=== PATIENT | male | born 1960 | race American Indian/Alaskan Native ===

== ENCOUNTER 2017-03-04 12:49 | Inpatient (IN) | payer MEDICAID ==
[2017-03-04 16:15] LABS: Basophils % (Auto) 0.3 % (0.0-1.8); Eosinophils % (Auto) 0.9 % (0.0-4.3); Hemoglobin 12.8 gm/dl (11.8-15.2); Mean Corpuscular HGB Conc 32 % (32-34); Mean Corpuscular Hemoglobin 30 pg (28-32); Mean Corpuscular Volume 94 fl (84-94); Platelet Count 160 K/mm3 (140-440); Red Blood Count 4.26 M/mm3 (3.65-5.03); Red Cell Distribution Width 14.3 % (13.2-15.2); White Blood Count 7.8 K/mm3 (4.5-11.0)
[2017-03-04 16:27] LABS: Anion Gap 19 mmol/L; BUN/Creatinine Ratio 21; Blood Urea Nitrogen 15 mg/dL (9-20); Calcium 8.7 mg/dL (8.4-10.2); Carbon Dioxide 25 mmol/L (22-30); Chloride 100.8 mmol/L (98-107); Glucose 151 mg/dL (75-100); Potassium 4.2 mmol/L (3.6-5.0); Sodium 141 mmol/L (137-145)
--- NOTE | 2017-03-04 16:50 | Emergency Department Report ---
ED Chest Pain HPI - General Chief Complaint: Chest Pain Stated Complaint: CHEST PAIN Time Seen by Provider: 03/04/17 16:39 Source: patient, EMS Mode of arrival: Ambulatory Limitations: No Limitations - History of Present Illness Initial Comments: 57-year-old male with a past history diabetes, cad with cabg 3 and 2014, hypertension, and hyperlipidemia presents to hospital complaints of chest pain that woke him up from sleep since 7 am. patient complains of a moderate amount made a left-sided sharp chest pain and also feeling like his chest was caving in and tight. positive social or shortness of breath and dizziness. denies nausea, vomiting, or diaphoresis. patient took a total of 6 aspirin 81 mg and 3 nitroglycerin without relief. last cath with approximately 2 years ago with cabg placement. 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 patient's been compliant with this medication. states unremarkable stress test one year ago. Denies stent placement. Severity scale (0 -10): 3 - Related Data Allergies Allergy/AdvReac Type Severity Reaction Status Date / Time Unable to Assess Allergy Unverified 03/04/17 16:03 Heart Score - HEART Score History: Moderately suspicious EKG: Non-specific Age: 45-65 Risk factors: > 3 risk factors or hx of atherosclerotic disease Troponin: < normal limit HEART Score: 5 ED Review of Systems ROS: Stated complaint: CHEST PAIN Other details as noted in HPI Comment: All other systems reviewed and negative Other: Constitutional: No fevers chills Eyes: No eye pain visual changes ENT: No ear pain or throat pain Neck: Denies pain Respiratory: Denies cough wheezing Cardiovascular: Denies palpitations, syncope GI: Denies abdominal pain, nausea, vomiting, diarrhea : Denies dysuria Musculoskeletal: Denies back pain Skin: Denies rash, lesions, erythema Neurologic: Denies headache, numbness, weakness Psychiatric: Denies suicidal ideation, hallucinations ED Past Medical Hx - Past Medical History Previous Medical History?: Yes Hx Hypertension: Yes Hx Heart Attack/AMI: Yes Hx Diabetes: Yes - Surgical History Past Surgical History?: Yes Hx Open Heart Surgery: Yes - Social History Smoking Status: Never Smoker Substance Use Type: Alcohol ED Physical Exam - General Limitations: No Limitations - Other Other exam information: General: No limitations, patient is alert in no acute distress Head exam: Atraumatic, normocephalic Eyes exam: Normal appearance, pupils equal reactive to light, extraocular movements intact ENT: Moist mucous membrane, normal oropharynx Neck exam: Normal inspection, full range of motion, no meningismus nontender Respiratory exam: Clear to auscultation bilateral, no wheezes, rales, crackles Cardiovascular: Normal rate and rhythm, normal heart sounds, left-sided parasternal chest wall tenderness Abdomen: Soft, nondistended, and nontender, with normal bowel sounds, no rebound, or guarding Extremity: Full range of motion normal inspection no deformity, no calf tenderness or edema Back: Normal Inspection, full range of motion, no tenderness Neurologic: Alert, oriented x3, cranial nerves intact, no motor or sensory deficit Psychiatric: normal affect, normal mood Skin: Warm, dry, intact ED Course Vital Signs 03/04/17 03/04/17 03/04/17 15:45 16:26 16:31 Temperature 98.6 F Pulse Rate 77 71 Respiratory 16 17 18 Rate Blood Pressure 145/82 O2 Sat by Pulse 98 100 86 Oximetry LIZBETH score - Lizbeth Score Age > 65: (0) No Aspirin use within the Past 7 Days: (1) Yes 3 or more CAD Risk Factors: (1) Yes 2 or more Angina events in past 24 hrs: (1) Yes Known CAD with more than 50% Stenosis: (1) Yes Elevated Cardiac Markers: (0) No ST Deviation Greater than 0.5mm: (0) No LIZBETH Score: 4 ED Medical Decision Making - Lab Data Result diagrams: 03/04/17 16:08 03/04/17 16:08 Lab Results 03/04/17 03/04/17 Range/Units 16:08 16:08 WBC 7.8 (4.5-11.0) K/mm3 RBC 4.26 (3.65-5.03) M/mm3 Hgb 12.8 (11.8-15.2) gm/dl Hct 40.0 (35.5-45.6) % MCV 94 (84-94) fl MCH 30 (28-32) pg MCHC 32 (32-34) % RDW 14.3 (13.2-15.2) % Plt Count 160 (140-440) K/mm3 Lymph % (Auto) 34.0 (13.4-35.0) % [place] % (Auto) 6.9 (0.0-7.3) % Eos % (Auto) 0.9 (0.0-4.3) % Baso % (Auto) 0.3 (0.0-1.8) % Lymph # 2.6 (1.2-5.4) K/mm3 [place] # 0.5 (0.0-0.8) K/mm3 Eos # 0.1 (0.0-0.4) K/mm3 Baso # 0.0 (0.0-0.1) K/mm3 Seg Neutrophils % 57.9 (40.0-70.0) % Seg Neutrophils # 4.5 (1.8-7.7) K/mm3 Sodium 141 (137-145) mmol/L Potassium 4.2 (3.6-5.0) mmol/L Chloride 100.8 (98-107) mmol/L Carbon Dioxide 25 (22-30) mmol/L Anion Gap 19 mmol/L BUN 15 (9-20) mg/dL Creatinine 0.7 L (0.8-1.5) mg/dL Estimated GFR > 60 ml/min BUN/Creatinine Ratio 21 % Glucose 151 H (75-100) mg/dL Calcium 8.7 (8.4-10.2) mg/dL Troponin T < 0.010 (0.00-0.029) ng/mL - EKG Data -: EKG Interpreted by Me EKG shows normal: sinus rhythm, axis (7), QRS complexes (92), ST-T waves (no stemi/t inv) - EKG Data When compared to previous EKG there are: previous EKG unavailable 03/04/17 17:08 repeat ekg without signficant injury - Radiology Data Radiology results: image reviewed (portable cxr: naf) - Medical Decision Making Plans admit patient to the hospital for further workup of chest pain. Significant cardiac risk factors. Initial troponin negative. - Differential Diagnosis costochondritis, MN, unstable angina, PE, atypical chest pain Critical Care Time: No Critical care attestation.: If time is entered above; I have spent that time in minutes in the direct care of this critically ill patient, excluding procedure time. ED Disposition Clinical Impression: Chest pain, History of coronary artery bypass graft x 3, Hypertension, Diabetes , Hyperlipidemia Disposition: OP ADMIT IP TO THIS HOSP Is pt being admited?: Yes Does the pt Need Aspirin: Yes Condition: Stable Time of Disposition: 16:55 (Dr Darden/hospitalist)
--- NOTE | 2017-03-04 17:48 | XRay Report ---
FINAL REPORT PROCEDURE: XR CHEST 1V AP TECHNIQUE: Chest radiograph anteroposterior view. CPT 44324 HISTORY: cp COMPARISON: No prior studies are available for comparison. FINDINGS: Lungs are clear. No infiltrates masses or effusions are identified. There appear to be postprocedural or postsurgical changes overlying the mediastinum. Surgical clips and small metallic ring is visualized. The heart does not appear to be enlarged. The pulmonary vasculature is not distended. No evidence of pulmonary edema or pleural effusion. No acute bony abnormalities are identified. IMPRESSION: Postprocedure or postsurgical changes suspected in the mediastinum. No acute abnormality is identified..
[2017-03-04] MEDS ORDERED: PROAIR IH PRN (20:23)
[2017-03-04] MEDS ORDERED: NITROSTAT SL PRN (20:23)
--- NOTE | 2017-03-04 20:23 | Event Note ---
Date: 03/04/17 History of Present Illness Date of examination: 03/04/17 Chief complaint: Chest pain History of present illness: 57-year-old -[place] male with past medical history significant for CAD status post CABG, hypertension, diabetes presented to the emergency department complaining of left-sided chest pain. The pain started this morning, 10 out of 10 in intensity, with radiation to the left arm, associated with dizziness, diaphoresis and shortness of breath. No alleviating or aggravating factors. Patient took 3 doses of nitroglycerin without improvement. Patient said he was compliant with his cardiac medications. Patient has been followed at [facility]. Currently the patient is chest pain-free. REVIEW OF SYSTEMS: GENERAL: no weight change, no fatigue, no fever HEAD: no head ache EYES: no blurry vision, no acute visual loss EARS: no hearing loss, no discharge, no earache NOSE: no stuffiness, no sneezing, no discharge MOUTH, THROAT AND NECK: no bleeding gums, no sore throat, no swollen neck CARDIAC: As stated in the HPI RESPIRATORY: + shortness of breath, no wheeze, no cough, no sputum, no hemoptysis, no asthma GI: no decreased appetite, no nausea, no vomiting, no dysphagia, no diarrhea, no constipation, no abdominal pain URINARY: no change in frequency, no urgency, no polyuria, no hematuria, no incontinence MUSCULOSKELETAL: no muscle weakness, no pain, no joint stiffness NEUROLOGIC: no loss of sensation/numbness, no tingling, no tremors, no weakness/ paralysis HEMATOLOGIC: no anemia, no easy bruising SKIN: no rashes ENDOCRINE: no heat/cold intolerance, no polyuria, no polydipsia, no thyroid problems, +diabetes PSYCHIATRIC: no anxiety, no depression, no suicidal ideations Past History Past Medical History: CAD, diabetes, hypertension Past Surgical History: CABG Social history: full code. denies: smoking, alcohol abuse, prescription drug abuse, IV drug use Family history: no significant family history Medications and Allergies Allergies Allergy/AdvReac Type Severity Reaction Status Date / Time ibuprofen AdvReac Itching Verified 03/04/17 13:04 Active Meds: Active Medications Heparin Sodium (Porcine) (Heparin) 5,000 unit SUB-Q Q8HR MARYURI Exam - Physical Exam Narrative exam: Not in cardiopulmonary distress. The patient obese. Vital signs as documented. Head exam is unremarkable. No scleral icterus . Neck is without jugular venous distension, thyromegaly, or carotid bruits. Lungs are clear to auscultation. Cardiac exam reveals regular rate and Rhythm. First and second heart sounds normal. No murmurs, rubs or gallops. Abdominal exam reveals normal bowel sounds, no masses, no organomegaly and no aortic enlargement. Extremities are nonedematous and both femoral and pedal pulses are normal. 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 No focal weakness. - Constitutional Vitals: Temp Pulse Resp BP Pulse Ox 98.6 F 77 16 145/82 98 03/04/17 13:01 03/04/17 13:01 03/04/17 13:01 03/04/17 13:01 03/04/17 13:01 Results - Imaging and Cardiology EKG: image reviewed Assessment and Plan Assessment and plan: Chest pain CAD status post CABG Diabetes mellitus with hyperglycemia - Serial cardiac enzymes and EKG - Cardiology consult - Resume his home medications - Pain control DVT prophylaxis - Heparin Disposition - Admit to telemetry Advance Directives: Yes VTE prophylaxis?: Chemical Plan of care discussed with patient/family: Yes
--- NOTE | 2017-03-04 20:23 | History and Physical Report ---
History of Present Illness Date of examination: 03/04/17 History of present illness: Please Check the HPI in the event note. Medications and Allergies Allergies Allergy/AdvReac Type Severity Reaction Status Date / Time Unable to Assess Allergy Unverified 03/04/17 16:03 Home Medications Medication Instructions Recorded Confirmed Last Taken Type Albuterol Sulfate [Proventil Hfa] 2 inhalation IH Q6H PRN 03/04/17 03/04/17 Unknown History Aspirin [Aspirin BABY CHEW TAB] 81 mg PO QDAY 03/04/17 03/04/17 Unknown History Atorvastatin [Lipitor Tab] 80 mg PO QHS 03/04/17 03/04/17 Unknown History Ferrous Gluconate [Iron] 27 mg PO DAILY 03/04/17 03/04/17 Unknown History Gemfibrozil [Lopid] 600 mg PO BID 03/04/17 03/04/17 Unknown History Isosorbide Dinitrate [Isordil 20 mg PO TID 03/04/17 03/04/17 Unknown History Titradose] Losartan [Cozaar] 25 mg PO QDAY 03/04/17 03/04/17 Unknown History Metformin HCl [Glucophage] 1,000 mg PO BID 03/04/17 03/04/17 Unknown History Metoprolol Xl [Metoprolol 100 mg PO QDAY 03/04/17 03/04/17 Unknown History SUCCINATE ER TAB] Nitroglycerin [Nitrostat] 0.4 mg SL Q5M PRN 03/04/17 03/04/17 Unknown History Omeprazole 40 mg PO DAILY 03/04/17 03/04/17 Unknown History Pentoxifylline [TRENtal] 400 mg PO TID 03/04/17 03/04/17 Unknown History traMADol [Ultram] 50 mg PO Q6HR PRN 03/04/17 03/04/17 Unknown History Exam - Constitutional Vitals: Temp Pulse Resp BP Pulse Ox 98.6 F 71 18 145/82 86 03/04/17 15:45 03/04/17 16:26 03/04/17 16:31 03/04/17 15:45 03/04/17 16:31 Results - Labs CBC & Chem 7: 03/04/17 16:08 03/04/17 16:08 Labs: Laboratory Last Values WBC 7.8 K/mm3 (4.5-11.0) 03/04/17 16:08 RBC 4.26 M/mm3 (3.65-5.03) 03/04/17 16:08 Hgb 12.8 gm/dl (11.8-15.2) 03/04/17 16:08 Hct 40.0 % (35.5-45.6) 03/04/17 16:08 MCV 94 fl (84-94) 03/04/17 16:08 MCH 30 pg (28-32) 03/04/17 16:08 MCHC 32 % (32-34) 03/04/17 16:08 RDW 14.3 % (13.2-15.2) 03/04/17 16:08 Plt Count 160 K/mm3 (140-440) 03/04/17 16:08 Lymph % (Auto) 34.0 % (13.4-35.0) 03/04/17 16:08 [place] % (Auto) 6.9 % (0.0-7.3) 03/04/17 16:08 Eos % (Auto) 0.9 % (0.0-4.3) 03/04/17 16:08 Baso % (Auto) 0.3 % (0.0-1.8) 03/04/17 16:08 Lymph # 2.6 K/mm3 (1.2-5.4) 03/04/17 16:08 [place] # 0.5 K/mm3 (0.0-0.8) 03/04/17 16:08 Eos # 0.1 K/mm3 (0.0-0.4) 03/04/17 16:08 Baso # 0.0 K/mm3 (0.0-0.1) 03/04/17 16:08 Seg Neutrophils % 57.9 % (40.0-70.0) 03/04/17 16:08 Seg Neutrophils # 4.5 K/mm3 (1.8-7.7) 03/04/17 16:08 Sodium 141 mmol/L (137-145) 03/04/17 16:08 Potassium 4.2 mmol/L (3.6-5.0) 03/04/17 16:08 Chloride 100.8 mmol/L (98-107) 03/04/17 16:08 Carbon Dioxide 25 mmol/L (22-30) 03/04/17 16:08 Anion Gap 19 mmol/L 03/04/17 16:08 BUN 15 mg/dL (9-20) 03/04/17 16:08 Creatinine 0.7 mg/dL (0.8-1.5) L 03/04/17 16:08 Estimated GFR > 60 ml/min 03/04/17 16:08 BUN/Creatinine Ratio 21 % 03/04/17 16:08 Glucose 151 mg/dL (75-100) H 03/04/17 16:08 Calcium 8.7 mg/dL (8.4-10.2) 03/04/17 16:08 Troponin T < 0.010 ng/mL (0.00-0.029) 03/04/17 18:47
[2017-03-04] MEDS ORDERED: MORPHINE IV PRN (20:28)
[2017-03-04] MEDS ORDERED: D50W (25GM) Syringe IV PRN (20:34)
[2017-03-04] MEDS ORDERED: PROVENTIL IH PRN (20:51)
[2017-03-04] MEDS: HEPARIN SUB-Q SCH (21:04)
[2017-03-04] MEDS ORDERED: NON-FORMULARY (Atorvastatin [Lipitor] 80 MG) PO SCH (22:00)
[2017-03-04] MEDS: NOVOLOG SUB-Q SCH (22:32)
[2017-03-04] MEDS: LOPID PO SCH (22:43)
[2017-03-05 03:02] LABS: Basophils % (Auto) 0.5 % (0.0-1.8); Eosinophils % (Auto) 2.7 % (0.0-4.3); Hematocrit 36.6 % (35.5-45.6); Hemoglobin 12.4 gm/dl (11.8-15.2); Mean Corpuscular HGB Conc 34 % (32-34); Mean Corpuscular Hemoglobin 31 pg (28-32); Mean Corpuscular Volume 92 fl (84-94); Platelet Count 133 K/mm3 (140-440); Red Cell Distribution Width 13.7 % (13.2-15.2); White Blood Count 6.8 K/mm3 (4.5-11.0)
[2017-03-05 03:19] LABS: Anion Gap 16 mmol/L; BUN/Creatinine Ratio 20; Blood Urea Nitrogen 14 mg/dL (9-20); Calcium 8.5 mg/dL (8.4-10.2); Carbon Dioxide 26 mmol/L (22-30); Chloride 101.3 mmol/L (98-107); Glucose 90 mg/dL (75-100); Potassium 3.5 mmol/L (3.6-5.0); Sodium 140 mmol/L (137-145)
[2017-03-05] MEDS ORDERED: ISORDIL TITRADOSE PO SCH (08:00)
[2017-03-05] MEDS: NOVOLOG SUB-Q SCH ×4 (08:25→22:36)
[2017-03-05] MEDS ORDERED: NON-FORMULARY (Omeprazole [Omeprazole] 40 MG) PO SCH (10:00)
--- NOTE | 2017-03-05 10:58 | Consultation ---
History of Present Illness Consult date: 03/05/17 Requesting physician: OSWALDO PENA Consult reason: chest pain History of present illness: He woke up yesterday morning from sleep with a sharp precordial chest pain. He took one sublingual nitroglycerin without relief and subsequently activated EMS. The pain was associated with shortness of breath but no radiation. So far , his cardiac enzymes are negative for acute myocardial infarction. Past History Past Medical History: CAD, diabetes, hypertension, hyperlipidemia Past Surgical History: CABG, Other (removal of sternal wires in 2016) Social history: denies: smoking, alcohol abuse Family history: denies: CAD Medications and Allergies Allergies Allergy/AdvReac Type Severity Reaction Status Date / Time atorvastatin [From Lipitor] Allergy Itching Verified 03/05/17 02:56 ibuprofen Allergy Itching Verified 03/05/17 02:56 Home Medications Medication Instructions Recorded Confirmed Last Taken Type Albuterol Sulfate [Proventil Hfa] 2 inhalation IH Q6H PRN 03/04/17 03/04/17 Unknown History Aspirin [Aspirin BABY CHEW TAB] 81 mg PO QDAY 03/04/17 03/04/17 Unknown History Atorvastatin [Lipitor Tab] 80 mg PO QHS 03/04/17 03/04/17 Unknown History Ferrous Gluconate [Iron] 27 mg PO DAILY 03/04/17 03/04/17 Unknown History Gemfibrozil [Lopid] 600 mg PO BID 03/04/17 03/04/17 Unknown History Isosorbide Dinitrate [Isordil 20 mg PO TID 03/04/17 03/04/17 Unknown History Titradose] Losartan [Cozaar] 25 mg PO QDAY 03/04/17 03/04/17 Unknown History Metformin HCl [Glucophage] 1,000 mg PO BID 03/04/17 03/04/17 Unknown History Metoprolol Xl [Metoprolol 100 mg PO QDAY 03/04/17 03/04/17 Unknown History SUCCINATE ER TAB] Nitroglycerin [Nitrostat] 0.4 mg SL Q5M PRN 03/04/17 03/04/17 Unknown History Omeprazole 40 mg PO DAILY 03/04/17 03/04/17 Unknown History Pentoxifylline [TRENtal] 400 mg PO TID 03/04/17 03/04/17 Unknown History traMADol [Ultram] 50 mg PO Q6HR PRN 03/04/17 03/04/17 Unknown History Active Meds: Active Medications Albuterol (Proventil) 2.5 mg IH Q6HRT PRN PRN Reason: Shortness Of Breath Aspirin (Baby Aspirin) 81 mg PO QDAY [facility] Atorvastatin Calcium (Lipitor) 80 mg PO QHS [facility] Last Admin: 03/04/17 22:44 Dose: 80 mg Dextrose (D50w (25gm) Syringe) 50 ml IV PRN PRN PRN Reason: Hypoglycemia Ferrous Gluconate (Fergon) 324 mg PO QDAY [facility] Gemfibrozil (Lopid) 600 mg PO BID [facility] Last Admin: 03/04/17 22:43 Dose: 600 mg Heparin Sodium (Porcine) (Heparin) 5,000 unit SUB-Q Q8H [facility] Last Admin: 03/04/17 21:04 Dose: 5,000 unit Influenza Virus Vaccine Quadrival (Fluarix Quad [id number](36 Mos+) 0.5 ml IM .ONCE ONE Stop: 03/05/17 12:01 Insulin Aspart (Novolog) 0 units SUB-Q ACHS [facility] PRN Reason: Protocol Last Admin: 03/04/17 22:32 Dose: 2 units Isosorbide Dinitrate (Isordil Titradose) 40 mg PO TID [facility] Losartan Potassium (Cozaar) 25 mg PO QDAY [facility] Metoprolol Succinate (Toprol Xl) 100 mg PO QDAY [facility] Morphine Sulfate (Morphine) 2 mg IV Q4H PRN PRN Reason: Pain, Moderate (4-6) Nitroglycerin (Nitrostat) 0.4 mg SL Q5M PRN PRN Reason: Chest Pain Pantoprazole Sodium (Protonix) 40 mg PO DAILY [facility] Pentoxifylline (Trental) 400 mg PO TID [facility] Review of Systems Constitutional: no fever, no chills Ears, nose, mouth and throat: no ear pain, no ear discharge Cardiovascular: chest pain, lightheadedness, shortness of breath, no palpitations Respiratory: shortness of breath, no cough, no hemoptysis Gastrointestinal: no abdominal pain, no nausea, no vomiting, no diarrhea, no constipation Genitourinary Male: no dysuria, no hematuria, no urinary frequency Rectal: no pain, no bleeding Musculoskeletal: no neck stiffness, no neck pain, no myalgias Integumentary: no rash, no pruritis Neurological: no paralysis, no weakness, no parathesias, no headaches Endocrine: no cold intolerance, no heat intolerance Hematologic/Lymphatic: no easy bruising, no easy bleeding Allergic/Immunologic: no urticaria, no wheezing Physical Examination Vital Signs Last Vital Signs Temp 97.9 F 03/05/17 09:06 Pulse 63 03/05/17 09:06 Resp 18 03/05/17 09:06 BP 131/79 03/05/17 09:06 Pulse Ox 96 03/05/17 09:06 General appearance: no acute distress HEENT: Positive: EOMI, Normocephaly, Mucus Membranes Moist Neck: Positive: neck supple, trachea midline Cardiac: Positive: Reg Rate and Rhythm, S1/S2 Lungs: Positive: clear to auscultation Neuro: Positive: Grossly Intact Abdomen: Positive: Soft, Active Bowel Sounds. Negative: Tender Skin: Positive: Clear. Negative: Rash Musculoskeletal: Normal Range of Motion Extremities: Present: normal. Absent: edema Results 03/05/17 02:49 03/05/17 02:49 CBC 03/04/17 03/05/17 Range/Units 16:08 02:49 WBC 7.8 6.8 (4.5-11.0) K/mm3 RBC 4.26 4.00 (3.65-5.03) M/mm3 Hgb 12.8 12.4 (11.8-15.2) gm/dl Hct 40.0 36.6 (35.5-45.6) % Plt Count 160 133 L (140-440) K/mm3 Lymph # 2.6 3.0 (1.2-5.4) K/mm3 [place] # 0.5 0.6 (0.0-0.8) K/mm3 Eos # 0.1 0.2 (0.0-0.4) K/mm3 Baso # 0.0 0.0 (0.0-0.1) K/mm3 Comprehensive Metabolic Panel 03/04/17 03/05/17 Range/Units 16:08 02:49 Sodium 141 140 (137-145) mmol/L Potassium 4.2 3.5 L (3.6-5.0) mmol/L Chloride 100.8 101.3 (98-107) mmol/L Carbon Dioxide 25 26 (22-30) mmol/L BUN 15 14 (9-20) mg/dL Creatinine 0.7 L 0.7 L (0.8-1.5) mg/dL Glucose 151 H 90 (75-100) mg/dL Calcium 8.7 8.5 (8.4-10.2) mg/dL - Imaging and Cardiology EKG: image reviewed EKG interpretations - Telemetry EKG Rhythm: Sinus Rhythm - EKG Sinus rhythms and dysrhythmias: sinus rhythm Assessment and Plan Increase the dose of oral nitrates. Schedule Lexiscan stress test with nuclear imaging in a.m. - Patient Problems (1) Chest pain Current Visit: Yes Status: Acute (2) CAD (coronary artery disease) Current Visit: Yes Status: Chronic Qualifiers: Coronary Disease-Associated Artery/Lesion type: [place] artery (3) Hx of CABG Current Visit: Yes Status: Chronic (4) Hypertension Current Visit: Yes Status: Chronic Qualifiers: Hypertension type: essential hypertension Qualified Code(s): I10 - Essential (primary) hypertension (5) Diabetes Current Visit: Yes Status: Chronic Qualifiers: Diabetes mellitus type: type 2
[2017-03-05] MEDS ORDERED: Fluarix Quad 2017-2018(36 MOS+ IM ONE (12:00)
[2017-03-05] MEDS: HEPARIN SUB-Q SCH ×3 (12:30→22:30)
[2017-03-05] MEDS: TOPROL XL PO SCH (12:50)
[2017-03-05] MEDS: TRENTAL PO SCH ×3 (12:51→22:32)
[2017-03-05] MEDS: PROTONIX PO SCH (12:51)
[2017-03-05] MEDS: BABY ASPIRIN PO SCH (12:51)
[2017-03-05] MEDS: COZAAR PO SCH (12:52)
[2017-03-05] MEDS: FERGON PO SCH (13:48)
[2017-03-05] MEDS: LOPID PO SCH ×2 (13:53→22:31)
--- NOTE | 2017-03-05 14:04 | Progress Note ---
Assessment and Plan Assessment and plan: 57 yo obese AAM with CAD s/p CABG, HTN, DM admitted for chest pain not relieved by nitroglycerin 1. Chest pain Known CAD s/p CABG On BB, ACEI, statin, aspirin EKG with no acute ischemic changes and CE negative Evaluated by Cardiology; nitrate dose increased and scheduled for stress test in am 2. HTN BP controlled on current regimen - metoprolol, losartan, isosorbide nitrate 3. Mixed hyperlipidemia On high-dose Lipitor along with gemfibrozil 4. Diabetes At home on Metformin, but hemoglobin A1c 5.9 Monitor BS, SSI as needed 5. Obesity Counseled regarding importance of losing weight the left sternal changes 6. DVT prophylaxis Heparin subcutaneous History Interval history: no chest pain this morning scheduled for MPI in am Hospitalist Physical - Constitutional Vitals: Temp Pulse Resp BP Pulse Ox 98.7 F 63 18 141/85 98 03/05/17 12:28 03/05/17 12:52 03/05/17 12:28 03/05/17 12:28 03/05/17 12:28 General appearance: Present: no acute distress, obese - EENT Eyes: Present: PERRL, EOM intact. Absent: scleral icterus, conjunctival injection - Neck Neck: Present: supple, normal ROM. Absent: masses or JVD - Respiratory Respiratory effort: normal Respiratory: bilateral: CTA, negative: rhonchi, wheezing - Cardiovascular Rhythm: regular Heart Sounds: Present: S1 & S2. Absent: systolic murmur - Extremities Extremities: no ischemia - Abdominal General gastrointestinal: soft, non-tender, non-distended, normal bowel sounds - Psychiatric Psychiatric: cooperative - Neurologic Neurologic: CNII-XII intact, no focal deficits Results - Labs CBC & Chem 7: 03/07/17 06:39 03/07/17 06:39 Labs: Laboratory Last Values WBC 6.8 K/mm3 (4.5-11.0) 03/05/17 02:49 RBC 4.00 M/mm3 (3.65-5.03) 03/05/17 02:49 Hgb 12.4 gm/dl (11.8-15.2) 03/05/17 02:49 Hct 36.6 % (35.5-45.6) 03/05/17 02:49 MCV 92 fl (84-94) 03/05/17 02:49 MCH 31 pg (28-32) 03/05/17 02:49 MCHC 34 % (32-34) 03/05/17 02:49 RDW 13.7 % (13.2-15.2) 03/05/17 02:49 Plt Count 133 K/mm3 (140-440) L 03/05/17 02:49 Lymph % (Auto) 44.9 % (13.4-35.0) H 03/05/17 02:49 [place] % (Auto) 8.6 % (0.0-7.3) H 03/05/17 02:49 Eos % (Auto) 2.7 % (0.0-4.3) 03/05/17 02:49 Baso % (Auto) 0.5 % (0.0-1.8) 03/05/17 02:49 Lymph # 3.0 K/mm3 (1.2-5.4) 03/05/17 02:49 [place] # 0.6 K/mm3 (0.0-0.8) 03/05/17 02:49 Eos # 0.2 K/mm3 (0.0-0.4) 03/05/17 02:49 Baso # 0.0 K/mm3 (0.0-0.1) 03/05/17 02:49 Seg Neutrophils % 43.3 % (40.0-70.0) 03/05/17 02:49 Seg Neutrophils # 2.9 K/mm3 (1.8-7.7) 03/05/17 02:49 Sodium 140 mmol/L (137-145) 03/05/17 02:49 Potassium 3.5 mmol/L (3.6-5.0) L 03/05/17 02:49 Chloride 101.3 mmol/L (98-107) 03/05/17 02:49 Carbon Dioxide 26 mmol/L (22-30) 03/05/17 02:49 Anion Gap 16 mmol/L 03/05/17 02:49 BUN 14 mg/dL (9-20) 03/05/17 02:49 Creatinine 0.7 mg/dL (0.8-1.5) L 03/05/17 02:49 Estimated GFR > 60 ml/min 03/05/17 02:49 BUN/Creatinine Ratio 20 % 03/05/17 02:49 Glucose 90 mg/dL (75-100) 03/05/17 02:49 POC Glucose 153 (70-105) H 03/04/17 22:34 Hemoglobin A1c 5.9 % (4-6) 03/04/17 16:08 Calcium 8.5 mg/dL (8.4-10.2) 03/05/17 02:49 Troponin T < 0.010 ng/mL (0.00-0.029) 03/04/17 21:55 NT-Pro-B Natriuret Pep 90.28 pg/mL (0-900) 03/04/17 16:08 - Imaging and Cardiology EKG: image reviewed Chest x-ray: image reviewed
[2017-03-05] MEDS: ISORDIL TITRADOSE PO SCH ×2 (14:12→22:31)
[2017-03-06] MEDS: HEPARIN SUB-Q SCH ×3 (05:20→21:08)
[2017-03-06] MEDS: ISORDIL TITRADOSE PO SCH ×2 (07:57→21:04)
[2017-03-06] MEDS ORDERED: LEXISCAN IV ONE ×2 (08:23→08:44)
--- NOTE | 2017-03-06 11:58 | Progress Note ---
Assessment and Plan Proceed with lexiscan MPI stress test. Await findings. The patient has been seen in conjunction with Dr. Ramirez who agrees with the assessment and plan of care. - Patient Problems (1) Chest pain Current Visit: Yes Status: Acute (2) CAD (coronary artery disease) Current Visit: Yes Status: Chronic Qualifiers: Coronary Disease-Associated Artery/Lesion type: [place] artery (3) Hx of CABG Current Visit: Yes Status: Chronic (4) Hypertension Current Visit: Yes Status: Chronic Qualifiers: Hypertension type: essential hypertension Qualified Code(s): I10 - Essential (primary) hypertension (5) Diabetes Current Visit: Yes Status: Chronic Qualifiers: Diabetes mellitus type: type 2 Subjective Date of service: 03/06/17 Principal diagnosis: chest pain Interval history: pt with no current cardiac complaints. for stress test today. Objective Last Vital Signs Temp 97.6 F 03/06/17 03:40 Pulse 71 03/06/17 07:57 Resp 18 03/06/17 03:40 BP 117/74 03/06/17 07:57 Pulse Ox 97 03/06/17 03:40 - Physical Examination General: No Apparent Distress HEENT: Positive: EOMI, Normocephaly, Mucus Membranes Moist Neck: Positive: neck supple, trachea midline Cardiac: Positive: Reg Rate and Rhythm, S1/S2 Lungs: Positive: clear to auscultation Neuro: Positive: Grossly Intact Abdomen: Positive: Soft, Active Bowel Sounds. Negative: Tender Skin: Positive: Clear. Negative: Rash Musculoskeletal: Normal Range of Motion Extremities: Present: normal. Absent: edema - Imaging and Cardiology EKG: image reviewed - EKG Sinus rhythms and dysrhythmias: sinus rhythm
[2017-03-06] MEDS: PROTONIX PO SCH (12:06)
[2017-03-06] MEDS: LOPID PO SCH ×2 (12:06→21:04)
[2017-03-06] MEDS: COZAAR PO SCH (12:07)
[2017-03-06] MEDS: BABY ASPIRIN PO SCH (12:07)
[2017-03-06] MEDS: TRENTAL PO SCH ×3 (12:09→21:04)
[2017-03-06] MEDS: NOVOLOG SUB-Q SCH ×2 (12:09→21:49)
--- NOTE | 2017-03-06 12:27 | Event Note ---
Date: 03/06/17 Lexiscan MPI stress test positive for ischemia. Coronary angiogram recommended for definitive diagnosis. Indications, potential risks and benefits of LHC reviewed with pt and he is agreeable to proceed. Consents obtained. NPO after MN. Padmaja GOLDEN NP / DR. ZUÑIGA
[2017-03-06] MEDS ORDERED: NACL 0.9% 500 ML 500 ML IV SCH (13:00)
[2017-03-06] MEDS: FERGON PO SCH (17:39)
--- NOTE | 2017-03-06 22:37 | Progress Note ---
Assessment and Plan Assessment and plan: 57 yo obese AAM with CAD s/p CABG, HTN, DM admitted for chest pain not relieved by nitroglycerin 1. Chest pain Known CAD s/p CABG On BB, ACEI, nitrates, statin, aspirin EKG with no acute ischemic changes and CE negative Evaluated by Cardiology; nitrate dose increased and underwent stress test which was abnormal, was scheduled for cardiac cath in a.m. 2. HTN BP controlled on current regimen - metoprolol, losartan, isosorbide nitrate 3. Mixed hyperlipidemia On high-dose Lipitor along with gemfibrozil 4. Diabetes At home on Metformin, but hemoglobin A1c 5.9 Monitor BS, SSI as needed 5. Obesity Counseled regarding importance of losing weight and lifestyle changes 6. DVT prophylaxis Heparin subcutaneous History Interval history: no chest pain, no SOB, but MPI abnormal, scheduled for cardiac cath tomorrow Hospitalist Physical - Constitutional Vitals: Temp Pulse Resp BP Pulse Ox 98.5 F 71 16 143/83 100 03/06/17 19:40 03/06/17 21:04 03/06/17 19:40 03/06/17 21:04 03/06/17 19:40 General appearance: Present: no acute distress, obese - EENT Eyes: Present: PERRL, EOM intact. Absent: scleral icterus, conjunctival injection - Neck Neck: Present: supple, normal ROM. Absent: masses or JVD - Respiratory Respiratory effort: normal Respiratory: bilateral: CTA, negative: rhonchi, wheezing - Cardiovascular Rhythm: regular Heart Sounds: Present: S1 & S2. Absent: systolic murmur - Extremities Extremities: no ischemia, No edema - Abdominal General gastrointestinal: soft, non-tender, non-distended, normal bowel sounds - Psychiatric Psychiatric: cooperative - Neurologic Neurologic: CNII-XII intact, no focal deficits Results - Labs CBC & Chem 7: 03/07/17 06:39 03/07/17 06:39 Labs: Laboratory Last Values WBC 6.8 K/mm3 (4.5-11.0) 03/05/17 02:49 RBC 4.00 M/mm3 (3.65-5.03) 03/05/17 02:49 Hgb 12.4 gm/dl (11.8-15.2) 03/05/17 02:49 Hct 36.6 % (35.5-45.6) 03/05/17 02:49 MCV 92 fl (84-94) 03/05/17 02:49 MCH 31 pg (28-32) 03/05/17 02:49 MCHC 34 % (32-34) 03/05/17 02:49 RDW 13.7 % (13.2-15.2) 03/05/17 02:49 Plt Count 133 K/mm3 (140-440) L 03/05/17 02:49 Lymph % (Auto) 44.9 % (13.4-35.0) H 03/05/17 02:49 [place] % (Auto) 8.6 % (0.0-7.3) H 03/05/17 02:49 Eos % (Auto) 2.7 % (0.0-4.3) 03/05/17 02:49 Baso % (Auto) 0.5 % (0.0-1.8) 03/05/17 02:49 Lymph # 3.0 K/mm3 (1.2-5.4) 03/05/17 02:49 [place] # 0.6 K/mm3 (0.0-0.8) 03/05/17 02:49 Eos # 0.2 K/mm3 (0.0-0.4) 03/05/17 02:49 Baso # 0.0 K/mm3 (0.0-0.1) 03/05/17 02:49 Seg Neutrophils % 43.3 % (40.0-70.0) 03/05/17 02:49 Seg Neutrophils # 2.9 K/mm3 (1.8-7.7) 03/05/17 02:49 Sodium 140 mmol/L (137-145) 03/05/17 02:49 Potassium 3.5 mmol/L (3.6-5.0) L 03/05/17 02:49 Chloride 101.3 mmol/L (98-107) 03/05/17 02:49 Carbon Dioxide 26 mmol/L (22-30) 03/05/17 02:49 Anion Gap 16 mmol/L 03/05/17 02:49 BUN 14 mg/dL (9-20) 03/05/17 02:49 Creatinine 0.7 mg/dL (0.8-1.5) L 03/05/17 02:49 Estimated GFR > 60 ml/min 03/05/17 02:49 BUN/Creatinine Ratio 20 % 03/05/17 02:49 Glucose 90 mg/dL (75-100) 03/05/17 02:49 POC Glucose 142 (70-105) H 03/06/17 21:35 Hemoglobin A1c 5.9 % (4-6) 03/04/17 16:08 Calcium 8.5 mg/dL (8.4-10.2) 03/05/17 02:49 Troponin T < 0.010 ng/mL (0.00-0.029) 03/04/17 21:55 NT-Pro-B Natriuret Pep 90.28 pg/mL (0-900) 03/04/17 16:08
--- NOTE | 2017-03-07 04:23 | Treadmill Report ---
LEXISCAN STRESS TEST REASON FOR STUDY: Chest pain. STRESS TEST PROTOCOL: The patient received 0.4 mg of Lexiscan intravenously over 10 seconds. Technetium-99m Tetrofosmin was subsequently injected. Baseline EKG, normal sinus rhythm. Lexiscan EKG, no diagnostic ischemic changes. No chest pain. No arrhythmias. IMPRESSION: Electrocardiographically negative stress test. Nuclear imaging report to follow. JOB# [id number] AGO/NTS
--- NOTE | 2017-03-07 06:23 | Treadmill Report ---
THALLIUM REPORT REASON FOR STUDY: Chest pain. IMAGING PROTOCOL: The patient received technetium-99 Tetrofosmin for stress and rest imaging. Imaging for all procedures was completed 30-90 minutes following the initial injection of Technetium 99m Tetrofosmin. SPECT imaging in the 180 degree arc was performed in the right anterior oblique projection. Computerized reconstruction of the images was performed for analysis. NUCLEAR IMAGING RESULTS: Normal left ventricular cavity size with no change from stress to rest. Distribution of radionuclide within the left ventricle revealed a medium size area of photo-induction involving the inferior wall. The degree of photo-induction is moderate. Rest imaging showed complete improvement in this defect. There is also a medium size area of photo-induction involving the apex. The degree of photo-induction is mild to moderate. Rest imaging showed partial improvement in this defect. In addition, there is a small area of photo-induction involving the anterior wall. The degree of photo-induction is moderate. Rest imaging showed partial improvement in this defect. There is also a small area of photo-induction involving the inferolateral wall. The degree of photo-induction is moderate. Rest imaging showed complete improvement in this defect. Gated SPECT imaging revealed normal global LV systolic function with no significant wall motion abnormalities. The calculated left ventricular ejection fraction is 59%. IMPRESSION: Medium size reversible inferior wall defect. Medium size, partially reversible apical defect. Small, partially reversible anterior wall defect. Small reversible inferolateral defect. Normal global LV systolic function with no significant wall motion abnormalities. Calculated ejection fraction 59%. These findings suggest moderate reversible ischemia in the right coronary artery territory. There is also suggestion of a small area of prior infarction with mild to moderate residual ischemia in the left anterior descending coronary artery territory. In addition, there is a small area of reversible ischemia in the left circumflex coronary artery territory. JOB# [id number] NUZHAT/ROSETTA STILES
[2017-03-07] MEDS ORDERED: NACL 0.9% 500 ML 500 ML IV SCH (07:00)
[2017-03-07] MEDS: HEPARIN SUB-Q SCH ×2 (07:05→13:00)
[2017-03-07 07:08] LABS: Basophils % (Auto) 0.6 % (0.0-1.8); Eosinophils % (Auto) 3.5 % (0.0-4.3); Hematocrit 38.1 % (35.5-45.6); Hemoglobin 12.7 gm/dl (11.8-15.2); Mean Corpuscular HGB Conc 33 % (32-34); Mean Corpuscular Hemoglobin 31 pg (28-32); Mean Corpuscular Volume 92 fl (84-94); Platelet Count 149 K/mm3 (140-440); Red Blood Count 4.14 M/mm3 (3.65-5.03); Red Cell Distribution Width 13.9 % (13.2-15.2); White Blood Count 5.3 K/mm3 (4.5-11.0)
[2017-03-07 07:19] LABS: INR 0.91 (0.87-1.13)
[2017-03-07 07:28] LABS: Anion Gap 18 mmol/L; BUN/Creatinine Ratio 16; Blood Urea Nitrogen 11 mg/dL (9-20); Calcium 7.7 mg/dL (8.4-10.2); Carbon Dioxide 23 mmol/L (22-30); Chloride 105.2 mmol/L (98-107); Glucose 120 mg/dL (75-100); Potassium 3.4 mmol/L (3.6-5.0); Sodium 143 mmol/L (137-145)
[2017-03-07] MEDS: NOVOLOG SUB-Q SCH ×3 (08:00→17:00)
[2017-03-07] MEDS: ISORDIL TITRADOSE PO SCH ×3 (08:00→20:54)
[2017-03-07] MEDS: TRENTAL PO SCH ×2 (08:00→14:27)
[2017-03-07] MEDS ORDERED: HALFPRIN EC PO ONE (08:06)
[2017-03-07] MEDS ORDERED: HEPARIN 10,000 UNITS/10 ML ONE (08:14)
[2017-03-07] MEDS ORDERED: HEPARIN/NS 5000 UNIT/500ML(CATH LAB) 1,000 ML IR ONE (08:14)
[2017-03-07] MEDS ORDERED: NITROGLYCERIN SYRINGE 3 ML ONE (08:16)
[2017-03-07] MEDS ORDERED: CALAN ONE (08:28)
[2017-03-07] MEDS: SUBLIMAZE ONE ×2 (08:37→08:49)
[2017-03-07] MEDS: VERSED ONE ×2 (08:37→08:49)
[2017-03-07] MEDS: XYLOCAINE 2% INFILTRATI ONE ×2 (08:42→08:47)
[2017-03-07] MEDS ORDERED: K-DUR PO ONE (09:00)
--- NOTE | 2017-03-07 09:23 | Progress Note ---
Assessment and Plan chest pain cad s/p cabg htn chol dm rec: cont treat medically for cad, nsaids for chest pain and bp control and followup with cardiology in one week. Subjective Date of service: 03/07/17 Principal diagnosis: chest pain Interval history: pt has some chest pain with palpations also Objective Vital Signs Temp Pulse Pulse Pulse Resp BP BP 03/07/17 06:32 97.5 F L 16 111/75 03/07/17 04:00 82 03/07/17 00:49 98.2 F 72 18 102/71 03/06/17 21:04 71 143/83 03/06/17 20:00 74 03/06/17 19:40 98.5 F 71 16 143/83 03/06/17 19:32 98.5 F 2 L 143/87 03/06/17 17:22 98.3 F 72 18 154/93 03/06/17 16:30 71 18 154/93 03/06/17 12:47 98.0 F 66 16 144/93 03/06/17 12:07 73 126/89 03/06/17 10:16 98.1 F 68 16 126/89 03/06/17 10:00 73 73 16 Pulse Ox 03/07/17 06:32 03/07/17 04:00 03/07/17 00:49 98 03/06/17 21:04 03/06/17 20:00 03/06/17 19:40 100 03/06/17 19:32 03/06/17 17:22 99 03/06/17 16:30 97 03/06/17 12:47 99 03/06/17 12:07 03/06/17 10:16 100 03/06/17 10:00 97 - Physical Examination General: No Apparent Distress HEENT: Positive: EOMI, Normocephaly, Mucus Membranes Moist Neck: Positive: neck supple, trachea midline Cardiac: Positive: Reg Rate and Rhythm Lungs: Positive: clear to auscultation Neuro: Positive: Grossly Intact Abdomen: Positive: Soft, Active Bowel Sounds. Negative: Tender Skin: Positive: Clear. Negative: Rash Incision: Cardiac Cath Site (no hematoma) Musculoskeletal: Normal Range of Motion Extremities: Present: normal. Absent: edema - Labs and Meds Coagulation 03/07/17 Range/Units 06:39 PT 12.7 (12.2-14.9) Sec. INR 0.91 (0.87-1.13) CBC 03/07/17 Range/Units 06:39 WBC 5.3 (4.5-11.0) K/mm3 RBC 4.14 (3.65-5.03) M/mm3 Hgb 12.7 (11.8-15.2) gm/dl Hct 38.1 (35.5-45.6) % Plt Count 149 (140-440) K/mm3 Lymph # 2.2 (1.2-5.4) K/mm3 [place] # 0.6 (0.0-0.8) K/mm3 Eos # 0.2 (0.0-0.4) K/mm3 Baso # 0.0 (0.0-0.1) K/mm3 Comprehensive Metabolic Panel 03/07/17 Range/Units 06:39 Sodium 143 (137-145) mmol/L Potassium 3.4 L (3.6-5.0) mmol/L Chloride 105.2 (98-107) mmol/L Carbon Dioxide 23 (22-30) mmol/L BUN 11 (9-20) mg/dL Creatinine 0.7 L (0.8-1.5) mg/dL Glucose 120 H (75-100) mg/dL Calcium 7.7 L (8.4-10.2) mg/dL - Imaging and Cardiology EKG: image reviewed Cardiac cath: report reviewed (lt main patent, lad mid 100%, patent sawyer to lad , rca 100% patent svg to pda, lcx patent svg to om1 100%, normal lv function ) - Telemetry EKG Rhythm: Sinus Rhythm - EKG Sinus rhythms and dysrhythmias: sinus rhythm
[2017-03-07] MEDS: LOPID PO SCH (11:51)
[2017-03-07] MEDS: TOPROL XL PO SCH ×2 (11:51→11:53)
[2017-03-07] MEDS: COZAAR PO SCH (11:52)
[2017-03-07] MEDS: PROTONIX PO SCH (11:52)
--- NOTE | 2017-03-07 11:55 | Event Note ---
Date: 03/07/17 Follow up in our [place] office with Dr. Zuñiga on 03/16/2017 @ 10:00AM. Padmaja GOLDEN NP / DR. ZUÑIGA
[2017-03-07] MEDS: FERGON PO SCH (12:00)
--- NOTE | 2017-03-07 15:45 | Discharge Summary ---
Providers - Providers Date of Admission: 03/05/17 02:15 Date of discharge: 03/07/17 Attending physician: KWADWO NERI 03/04/17 Consult to Cardiac Rehabilitation [CONS] Routine Reason For Exam: Phase 1 03/04/17 20:25 Consult to Cardiology [CONS] Routine [facility] Reason For Exam: chest pain 03/07/17 09:24 Consult to Cardiac Rehabilitation [CONS] Routine Reason For Exam: Cardiac Rehab Evaluation Primary care physician: [facility] [employer] Hospitalization Reason for admission: chest pain Condition: Stable Pertinent studies: CXR Stress test Procedures: Cardiac catheterization Hospital course: Patient is a 57 years old obese AAM with CAD s/p CABG, HTN, DM who was admitted for chest pain not relieved by nitroglycerin. Acute coronary syndrome was excluded. Evaluated by cardiology and underwent stress test which was abnormal , so cardiac catheterization was performed which revealed patent coronaries. Medical therapy was optimized and discharged in stable condition with close follow-up with cardiology. Discharge diagnoses: Anginal chest pain Coronary artery disease status post CABG Hypertension Mixed hyperlipidemia Diabetes Obesity Disposition: DC-01 TO HOME OR SELFCARE Time spent for discharge: 40 min Core Measure Documentation - Palliative Care Palliative Care/ Comfort Measures: Not Applicable - Core Measures Any of the following diagnoses?: none Exam - Physical Exam Narrative exam: Seen and examined; - Constitutional Vitals: Temp Pulse Resp BP Pulse Ox 97.5 F L 79 16 148/98 98 03/07/17 06:32 03/07/17 14:28 03/07/17 06:32 03/07/17 14:28 03/07/17 00:49 General appearance: Present: no acute distress, well-nourished - EENT Eyes: Present: PERRL, EOM intact. Absent: scleral icterus, conjunctival injection - Neck Neck: Present: supple, normal ROM. Absent: masses or JVD - Respiratory Respiratory effort: normal Respiratory: bilateral: CTA, negative: rhonchi, wheezing - Cardiovascular Rhythm: regular Heart Sounds: Present: S1 & S2. Absent: systolic murmur - Extremities Extremities: no ischemia - Abdominal General gastrointestinal: Present: soft, non-tender, non-distended, normal bowel sounds - Musculoskeletal Musculoskeletal: strength equal bilaterally - Psychiatric Psychiatric: cooperative - Neurologic Neurologic: CNII-XII intact, no focal deficits Plan Activity: advance as tolerated Diet: low cholesterol, low salt Follow up with: PRIMARY CARE, [Primary Care Provider] - 3-5 Days SOPHIA ZUÑIGA MD [Staff Physician] - 03/16/17 10:00 am Prescriptions: Atorvastatin [Lipitor] 80 mg PO QHS #30 tablet Aspirin [Aspirin BABY CHEW TAB] 81 mg PO QDAY #30 tab.chew Gemfibrozil [Lopid] 600 mg PO BID #60 tablet Isosorbide Dinitrate [Isordil Titradose] 40 mg PO TID #180 tablet Losartan [Cozaar] 25 mg PO QDAY #30 tablet Metformin HCl [Glucophage] 1,000 mg PO BID #60 tablet Metoprolol Xl [Metoprolol SUCCINATE ER TAB] 100 mg PO QDAY #30 tablet Nitroglycerin [Nitrostat] 0.4 mg SL Q5M PRN #30 tablet PRN Reason: Chest Pain Pentoxifylline [TRENtal] 400 mg PO TID #90 tablet
--- NOTE | 2017-03-07 16:05 | Cardiac Catherization Report ---
LEFT HEART CATHETERIZATION SURGEON: Ronni Grant MD CLINICAL INFORMATION: This is a 57-year-old -[place] gentleman with history of hypertension, diabetes ____ chest pain with abnormal stress test. He is here with history of coronary artery disease with a 3-vessel bypass done in 2015, hyperlipidemia. He is here for a left heart catheterization. Procedure was done via the left common femoral artery, sterile technique, local anesthesia, a 5-Bruneian groin sheath inserted. There is calcification now in the iliac system. PROCEDURE FINDINGS: 1. Left system was engaged with JL4 catheter, left main is large, long, and patent. There is moderate to severe tortuosity of the circumflex, which is a small caliber, vessels are patent. LAD is a small to medium caliber vessel with moderate tortuosity. Mid has competitive flow. JULIAN was engaged with an JR4 catheter, is a medium caliber graft, free of disease at the ostium, body feeds into the mid LAD with good flow into the rest of the LAD. Diagonal 1 is a small caliber vessels, it was patent with [id number] tortuosity. RCA is 100% at the ostium, flush occlusion. 2. SVG to PDA engaged JL4 catheter, a large caliber graft, free of disease at the ostium, body, anastomosis site, feeds into a small caliber PDA, PLV that are patent with retrograde fill. 4. SVG to OM is 100%. 5. LV gram done in HEBREW and SCHERER view shows normal LV function, LVEDP 18 mmHg, LV is 158/18, aortic is 150/96. No gradient across the aortic valve on pullback. 5-Bruneian catheters were taken over the guidewire, 5-Bruneian groin sheath was discontinued. Manual pressure held. No hematoma, no bleeding. SUMMARY: 1. Patent JULIAN to LAD, patent SVG to PDA. RCA is 100%. 2. Left main patent, LAD mid and competitive flow 100% with patent diagonal, patent circumflex, patent OM-1, small caliber vessel, moderate to severe tortuosity. 3. Normal LV function. 4. Continue risk factor modification. JOB# [id number] NARGIS/NTS
[2017-03-07 20:56] VITALS: BP 134/78
== END 2017-03-07 18:00 | disposition home or self-care (01) | DRG 287 ==
LOC: ED 12:49 → 4A 03-05 02:15
PROVIDERS: ADMIT Internal Medicine; ATTEND Internal Medicine
PROC: 3E0234Z Introduction of Serum, Toxoid and Vaccine into Muscle, Percutaneous Approach (ICD-10-PCS; 2017-03-05)
PROC: 4A023N7 Measurement of Cardiac Sampling and Pressure, Left Heart, Percutaneous Approach (ICD-10-PCS; principal; 2017-03-07)
PROC: B2151ZZ Fluoroscopy of Left Heart using Low Osmolar Contrast (ICD-10-PCS; 2017-03-07)
DX: I25.119 Atherosclerotic heart disease of native coronary artery with unspecified angina pectoris (principal); I10 Essential (primary) hypertension; E78.2 Mixed hyperlipidemia; E66.9 Obesity, unspecified; Z88.8 Allergy status to other drugs, medicaments and biological substances; Z23 Encounter for immunization; Z95.1 Presence of aortocoronary bypass graft; I25.2 Old myocardial infarction; E11.65 Type 2 diabetes mellitus with hyperglycemia; Z79.82 Long term (current) use of aspirin; Z79.899 Other long term (current) drug therapy; Z68.30 Body mass index [BMI] 30.0-30.9, adult
CPT/HCPCS: 36415; 71010; 78452; 80048; 82962; 83036; 83880; 84484; 85025; 85610; 90471; 90686; 93005; 93010; 93017; 93459; 96374; 99285; A9270-GY; A9502; J1644; J2250; J2270; J2785; J3010; J7040; Q9967

== ENCOUNTER 2017-04-29 03:46 | Emergency (ER) | payer MEDICAID ==
[2017-04-29] MEDS ORDERED: ASPIRIN PO ONE (05:02)
[2017-04-29 05:47] LABS: Basophils % (Auto) 0.4 % (0.0-1.8); Eosinophils # (Auto) 0.1 K/mm3 (0.0-0.4); Eosinophils % (Auto) 2.2 % (0.0-4.3); Hemoglobin 12.8 gm/dl (11.8-15.2); Lymphocytes # (Auto) 2.8 K/mm3 (1.2-5.4); Lymphocytes % (Auto) 48.8 % (13.4-35.0); Mean Corpuscular HGB Conc 34 % (32-34); Mean Corpuscular Hemoglobin 31 pg (28-32); Mean Corpuscular Volume 91 fl (84-94); Monocytes # (Auto) 0.5 K/mm3 (0.0-0.8); Monocytes % (Auto) 8.7 % (0.0-7.3); Platelet Count 170 K/mm3 (140-440); Red Blood Count 4.18 M/mm3 (3.65-5.03); Red Cell Distribution Width 13.3 % (13.2-15.2)
[2017-04-29 06:01] LABS: BUN/Creatinine Ratio 15; Blood Urea Nitrogen 12 mg/dL (9-20); Calcium 9.4 mg/dL (8.4-10.2); Hemolysis Index 6
--- NOTE | 2017-04-29 10:47 | Emergency Department Report ---
ED Chest Pain HPI - General Chief Complaint: Chest Pain Stated Complaint: CHEST PAIN Time Seen by Provider: 04/29/17 10:25 Source: patient Mode of arrival: Stretcher Limitations: No Limitations - History of Present Illness Initial Comments: Mr. Romero is a 57-year-old male with history of coronary artery disease and 3 vessel CABG who presents with chest pain. Patient had severe 10 out of 10 left sided chest pain squeezing in nature yesterday. Chest pain occurred at rest. Nitroglycerin did provide relief. Pain is now 2/10. He had associated shortness of breath and nausea. He also feels that his chest is sore to touch. Recently evaluated in March with cardiac catheterization. No PTCA. No stent. Mr. Romero explains that he has felt well since his discharge in March. He does not have daily chest pain. Chest pain is normally not associated with exertion or physical activity. I reviewed electronic record. I reviewed inpatient w/u in March. Patient had ischemic changes in the RCA region, on myocardial perfusion scan. There is 100% RCA occlusion on cardiac catheterization. - Related Data Home Medications Medication Instructions Recorded Confirmed Last Taken Albuterol Sulfate [Proventil Hfa] 2 inhalation IH Q6H PRN 03/04/17 03/04/17 Unknown Ferrous Gluconate [Iron] 27 mg PO DAILY 03/04/17 03/04/17 Unknown Omeprazole 40 mg PO DAILY 03/04/17 03/04/17 Unknown traMADol [Ultram 50 MG tab] 50 mg PO Q6HR PRN 03/04/17 03/04/17 Unknown Previous Rx's Medication Instructions Recorded Last Taken Type Aspirin [Aspirin BABY CHEW TAB] 81 mg PO QDAY #30 tab.chew 03/07/17 Unknown Rx Atorvastatin [Lipitor] 80 mg PO QHS #30 tablet 03/07/17 Unknown Rx Gemfibrozil [Lopid] 600 mg PO BID #60 tablet 03/07/17 Unknown Rx Isosorbide Dinitrate [Isordil 40 mg PO TID #180 tablet 03/07/17 Unknown Rx Titradose] Losartan [Cozaar] 25 mg PO QDAY #30 tablet 03/07/17 Unknown Rx Metformin HCl [Glucophage] 1,000 mg PO BID #60 tablet 03/07/17 Unknown Rx Metoprolol Xl [Metoprolol 100 mg PO QDAY #30 tablet 03/07/17 Unknown Rx SUCCINATE ER TAB] Nitroglycerin [Nitrostat] 0.4 mg SL Q5M PRN #30 tablet 03/07/17 Unknown Rx Pentoxifylline [TRENtal] 400 mg PO TID #90 tablet 03/07/17 Unknown Rx amLODIPine [Norvasc] 5 mg PO DAILY 30 Days #30 tab 04/29/17 Unknown Rx Allergies Allergy/AdvReac Type Severity Reaction Status Date / Time atorvastatin [From Lipitor] Allergy Itching Verified 03/05/17 02:56 ibuprofen Allergy Itching Verified 03/05/17 02:56 Heart Score - HEART Score History: Slightly suspicious EKG: Normal Age: 45-65 Risk factors: > 3 risk factors or hx of atherosclerotic disease Troponin: < normal limit HEART Score: 3 ED Review of Systems ROS: Stated complaint: CHEST PAIN Other details as noted in HPI Comment: All other systems reviewed and negative Constitutional: denies: chills Respiratory: denies: cough Cardiovascular: chest pain ED Past Medical Hx - Past Medical History Hx Hypertension: Yes Hx Heart Attack/AMI: Yes Hx Diabetes: Yes Hx GERD: Yes Hx Asthma: Yes - Surgical History Hx Open Heart Surgery: Yes (Triple Bypass) - Social History Smoking Status: Never Smoker Substance Use Type: None - Medications Home Medications: Home Medications Medication Instructions Recorded Confirmed Last Taken Type Albuterol Sulfate [Proventil Hfa] 2 inhalation IH Q6H PRN 03/04/17 03/04/17 Unknown History Ferrous Gluconate [Iron] 27 mg PO DAILY 03/04/17 03/04/17 Unknown History Omeprazole 40 mg PO DAILY 03/04/17 03/04/17 Unknown History traMADol [Ultram 50 MG tab] 50 mg PO Q6HR PRN 03/04/17 03/04/17 Unknown History Aspirin [Aspirin BABY CHEW TAB] 81 mg PO QDAY #30 tab.chew 03/07/17 Unknown Rx Atorvastatin [Lipitor] 80 mg PO QHS #30 tablet 03/07/17 Unknown Rx Gemfibrozil [Lopid] 600 mg PO BID #60 tablet 03/07/17 Unknown Rx Isosorbide Dinitrate [Isordil 40 mg PO TID #180 tablet 03/07/17 Unknown Rx Titradose] Losartan [Cozaar] 25 mg PO QDAY #30 tablet 03/07/17 Unknown Rx Metformin HCl [Glucophage] 1,000 mg PO BID #60 tablet 03/07/17 Unknown Rx Metoprolol Xl [Metoprolol 100 mg PO QDAY #30 tablet 03/07/17 Unknown Rx SUCCINATE ER TAB] Nitroglycerin [Nitrostat] 0.4 mg SL Q5M PRN #30 tablet 03/07/17 Unknown Rx Pentoxifylline [TRENtal] 400 mg PO TID #90 tablet 03/07/17 Unknown Rx amLODIPine [Norvasc] 5 mg PO DAILY 30 Days #30 tab 04/29/17 Unknown Rx ED Physical Exam - General Limitations: No Limitations General appearance: alert, in no apparent distress - Head Head exam: Present: atraumatic, normocephalic - Eye Eye exam: Present: normal appearance - ENT ENT exam: Present: normal exam, normal orophraynx, mucous membranes moist - Neck Neck exam: Present: normal inspection. Absent: tenderness, meningismus - Respiratory Respiratory exam: Present: normal lung sounds bilaterally. Absent: respiratory distress, wheezes, rales, rhonchi - Cardiovascular Cardiovascular Exam: Present: regular rate, normal rhythm, normal heart sounds. Absent: bradycardia, tachycardia, systolic murmur, diastolic murmur, rubs, gallop - GI/Abdominal GI/Abdominal exam: Present: soft, normal bowel sounds. Absent: distended, tenderness, guarding, rebound - Rectal Rectal exam: Present: deferred - Extremities Exam Extremities exam: Present: normal inspection, full ROM. Absent: tenderness - Back Exam Back exam: Present: normal inspection - Neurological Exam Neurological exam: Present: alert, oriented X3 - Psychiatric Psychiatric exam: Present: normal affect, normal mood - Skin Skin exam: Present: warm, dry, intact, normal color. Absent: rash ED Course Vital Signs 04/29/17 04/29/17 03:55 04:57 Temperature 98.5 F 98.5 F Pulse Rate 74 81 Respiratory 18 16 Rate Blood Pressure 135/83 135/83 O2 Sat by Pulse 97 97 Oximetry LIZBETH score - Lizbeth Score Age > 65: (0) No Aspirin use within the Past 7 Days: (1) Yes 3 or more CAD Risk Factors: (1) Yes 2 or more Angina events in past 24 hrs: (1) Yes Known CAD with more than 50% Stenosis: (1) Yes Elevated Cardiac Markers: (0) No ST Deviation Greater than 0.5mm: (0) No LIZBETH Score: 4 ED Medical Decision Making - Lab Data Result diagrams: 04/29/17 05:27 04/29/17 05:27 Laboratory Tests 04/29/17 04/29/17 04/29/17 05:27 05:27 06:50 WBC 5.8 RBC 4.18 Hgb 12.8 Hct 38.0 MCV 91 MCH 31 MCHC 34 RDW 13.3 Plt Count 170 Lymph % (Auto) 48.8 H [place] % (Auto) 8.7 H Eos % (Auto) 2.2 Baso % (Auto) 0.4 Lymph # 2.8 [place] # 0.5 Eos # 0.1 Baso # 0.0 Seg Neutrophils % 39.9 L Seg Neutrophils # 2.3 Sodium 142 Potassium 3.7 Chloride 101.0 Carbon Dioxide 25 Anion Gap 20 BUN 12 Creatinine 0.8 Estimated GFR > 60 BUN/Creatinine Ratio 15 Glucose 122 H Calcium 9.4 Troponin T < 0.010 < 0.010 Laboratory Results - last 24 hr 04/29/17 04/29/17 04/29/17 05:27 05:27 06:50 WBC 5.8 RBC 4.18 Hgb 12.8 Hct 38.0 MCV 91 MCH 31 MCHC 34 RDW 13.3 Plt Count 170 Lymph % (Auto) 48.8 H [place] % (Auto) 8.7 H Eos % (Auto) 2.2 Baso % (Auto) 0.4 Lymph # 2.8 [place] # 0.5 Eos # 0.1 Baso # 0.0 Seg Neutrophils % 39.9 L Seg Neutrophils # 2.3 Sodium 142 Potassium 3.7 Chloride 101.0 Carbon Dioxide 25 Anion Gap 20 BUN 12 Creatinine 0.8 Estimated GFR > 60 BUN/Creatinine Ratio 15 Glucose 122 H Calcium 9.4 Troponin T < 0.010 < 0.010 - EKG Data -: EKG Interpreted by Me - EKG Data 04/29/17 10:46 EKG obtained 354 Normal EKG Rate of 70 normal sinus rhythm nl axis normal intervals no ST elevation no signs of ischemia - Radiology Data Radiology results: report reviewed - Medical Decision Making Mrs. Romero is a pleasant 57-year-old male with coronary artery disease status post three-vessel CABG. This chest pain is mostly resolved after nitroglycerin at this time. Bit Grinder Dr. Ochoa was quite helpful. He explained that the RCA lesion is a chronic occlusion. He felt that optimizing medical management would be the best course of therapy. He recommended adding a calcium channel luis f Norvasc 5 mg per day. Ms. Romero understands that he should follow up with metal forger's assistant Dr. Ramirez tomorrow. He will call the office at 8:30 AM for next-day appointment. Patient is comfortable with this treatment plan. I agree the patient stable and appropriate for home. Rx: amlodipine Critical care attestation.: If time is entered above; I have spent that time in minutes in the direct care of this critically ill patient, excluding procedure time. ED Disposition Clinical Impression: Stable angina Disposition: DC-01 TO HOME OR SELFCARE Is pt being admited?: No Does the pt Need Aspirin: No Condition: Stable Instructions: Angina (ED) Prescriptions: amLODIPine [Norvasc] 5 mg PO DAILY 30 Days #30 tab Referrals: PRIMARY CARE, [Primary Care Provider] - 3-5 Days
[2017-04-29 11:56] VITALS: BP 123/74
== END 2017-04-29 11:20 | disposition home or self-care (01) ==
LOC: ED 03:46
DX: I20.8 Other forms of angina pectoris (principal); I10 Essential (primary) hypertension; I25.2 Old myocardial infarction; K21.9 Gastro-esophageal reflux disease without esophagitis; E11.9 Type 2 diabetes mellitus without complications; J45.909 Unspecified asthma, uncomplicated; Z88.6 Allergy status to analgesic agent; Z88.8 Allergy status to other drugs, medicaments and biological substances
CPT/HCPCS: 36415; 80048; 84484; 85025; 93005; 93010; 99284

== ENCOUNTER 2017-05-22 14:07 | Emergency (ER) | payer MEDICAID ==
[2017-05-22 14:23] VITALS: BP 141/84
--- NOTE | 2017-05-22 16:11 | Emergency Department Report ---
Blank Doc - Documentation Documentation: Patient is a 57-year-old [place] male who is presenting with suprapubic discomfort and dysuria for the last 3-4 days. Patient states he has some chronic right hip pain is worse with sitting still and better when he gets moving. He did not leave that this is related. Urinalysis will be performed here to rule out a urinary tract infection
[2017-05-22 16:40] LABS: Bilirubin,Urine NEG (Negative); Blood,Urine NEG (Negative); Nitrite,Urine NEG (Negative); Protein,Urine <15 mg/dL mg/dL (Negative); Urobilinogen,Urine < 2.0 mg/dL (<2.0); WBC,Urine < 1.0 /HPF (0.0-6.0)
[2017-05-22 16:42] LABS: Color,Urine Colorless (Yellow)
--- NOTE | 2017-05-22 17:45 | Emergency Department Report ---
ED Male HPI - General Chief complaint: Urogenital-Male Stated complaint: RIGHT LEG PAIN Time Seen by Provider: 05/22/17 16:10 Source: patient Mode of arrival: Ambulatory Limitations: No Limitations - History of Present Illness Initial comments: Patient is a 57-year-old [place] male sex and reactive with 1 partner who is presenting with several days of discomfort when he urinates. Patient states as a burning sensation when he urinates and also when he is not he has not seen any penile discharge or hematuria at this time. Patient states that the discomfort is deep within the him as well as in the penis. Patient denies any fevers chills nausea vomiting diarrhea. - Related Data Home Medications Medication Instructions Recorded Confirmed Last Taken Albuterol Sulfate [Proventil Hfa] 2 inhalation IH Q6H PRN 03/04/17 03/04/17 Unknown Ferrous Gluconate [Iron] 27 mg PO DAILY 03/04/17 03/04/17 Unknown Omeprazole 40 mg PO DAILY 03/04/17 03/04/17 Unknown traMADol [Ultram 50 MG tab] 50 mg PO Q6HR PRN 03/04/17 03/04/17 Unknown Previous Rx's Medication Instructions Recorded Last Taken Type Aspirin [Aspirin BABY CHEW TAB] 81 mg PO QDAY #30 tab.chew 03/07/17 Unknown Rx Atorvastatin [Lipitor] 80 mg PO QHS #30 tablet 03/07/17 Unknown Rx Gemfibrozil [Lopid] 600 mg PO BID #60 tablet 03/07/17 Unknown Rx Isosorbide Dinitrate [Isordil 40 mg PO TID #180 tablet 03/07/17 Unknown Rx Titradose] Losartan [Cozaar] 25 mg PO QDAY #30 tablet 03/07/17 Unknown Rx Metformin HCl [Glucophage] 1,000 mg PO BID #60 tablet 03/07/17 Unknown Rx Metoprolol Xl [Metoprolol 100 mg PO QDAY #30 tablet 03/07/17 Unknown Rx SUCCINATE ER TAB] Nitroglycerin [Nitrostat] 0.4 mg SL Q5M PRN #30 tablet 03/07/17 Unknown Rx Pentoxifylline [TRENtal] 400 mg PO TID #90 tablet 03/07/17 Unknown Rx amLODIPine [Norvasc] 5 mg PO DAILY 30 Days #30 tab 04/29/17 Unknown Rx Ciprofloxacin HCl [Cipro] 500 mg PO BID #14 tablet 05/22/17 Unknown Rx traMADol [Ultram] 50 mg PO Q6HR PRN #12 tablet 05/22/17 Unknown Rx Allergies Allergy/AdvReac Type Severity Reaction Status Date / Time atorvastatin [From Lipitor] Allergy Itching Verified 03/05/17 02:56 ibuprofen Allergy Itching Verified 03/05/17 02:56 ED Review of Systems ROS: Stated complaint: RIGHT LEG PAIN Other details as noted in HPI Comment: All other systems reviewed and negative Musculoskeletal: as per HPI (patient has some pain in the left hip that is worsened with sitting still and better with movement) ED Past Medical Hx - Past Medical History Hx Hypertension: Yes Hx Heart Attack/AMI: Yes Hx Diabetes: Yes Hx GERD: Yes Hx Asthma: Yes - Surgical History Hx Open Heart Surgery: Yes (Triple Bypass) - Social History Smoking Status: Former Smoker Substance Use Type: Alcohol - Medications Home Medications: Home Medications Medication Instructions Recorded Confirmed Last Taken Type Albuterol Sulfate [Proventil Hfa] 2 inhalation IH Q6H PRN 03/04/17 03/04/17 Unknown History Ferrous Gluconate [Iron] 27 mg PO DAILY 03/04/17 03/04/17 Unknown History Omeprazole 40 mg PO DAILY 03/04/17 03/04/17 Unknown History traMADol [Ultram 50 MG tab] 50 mg PO Q6HR PRN 03/04/17 03/04/17 Unknown History Aspirin [Aspirin BABY CHEW TAB] 81 mg PO QDAY #30 tab.chew 03/07/17 Unknown Rx Atorvastatin [Lipitor] 80 mg PO QHS #30 tablet 03/07/17 Unknown Rx Gemfibrozil [Lopid] 600 mg PO BID #60 tablet 03/07/17 Unknown Rx Isosorbide Dinitrate [Isordil 40 mg PO TID #180 tablet 03/07/17 Unknown Rx Titradose] Losartan [Cozaar] 25 mg PO QDAY #30 tablet 03/07/17 Unknown Rx Metformin HCl [Glucophage] 1,000 mg PO BID #60 tablet 03/07/17 Unknown Rx Metoprolol Xl [Metoprolol 100 mg PO QDAY #30 tablet 03/07/17 Unknown Rx SUCCINATE ER TAB] Nitroglycerin [Nitrostat] 0.4 mg SL Q5M PRN #30 tablet 12/06/17 Unknown Rx Pentoxifylline [TRENtal] 400 mg PO TID #90 tablet 03/07/17 Unknown Rx amLODIPine [Norvasc] 5 mg PO DAILY 30 Days #30 tab 04/29/17 Unknown Rx Ciprofloxacin HCl [Cipro] 500 mg PO BID #14 tablet 05/22/17 Unknown Rx traMADol [Ultram] 50 mg PO Q6HR PRN #12 tablet 05/22/17 Unknown Rx ED Physical Exam - General Limitations: No Limitations General appearance: alert, in no apparent distress - Head Head exam: Present: atraumatic, normocephalic - Eye Eye exam: Present: normal appearance - ENT ENT exam: Present: mucous membranes moist - Neck Neck exam: Present: normal inspection - Respiratory Respiratory exam: Present: normal lung sounds bilaterally. Absent: respiratory distress, wheezes, rales, rhonchi - Cardiovascular Cardiovascular Exam: Present: regular rate, normal rhythm. Absent: systolic murmur, diastolic murmur, rubs, gallop - GI/Abdominal GI/Abdominal exam: Present: soft, normal bowel sounds - Rectal Rectal exam: Present: deferred - Extremities Exam Extremities exam: Present: normal inspection - Back Exam Back exam: Present: normal inspection - Neurological Exam Neurological exam: Present: alert, oriented X3 - Psychiatric Psychiatric exam: Present: normal affect, normal mood - Skin Skin exam: Present: warm, dry, intact, normal color. Absent: rash ED Course Vital Signs 05/22/17 14:18 Temperature 98.6 F Pulse Rate 86 Respiratory 16 Rate Blood Pressure 141/84 O2 Sat by Pulse 100 Oximetry ED Medical Decision Making - Lab Data Lab Results 05/22/17 Range/Units 16:22 Urine Color Colorless (Yellow) Urine Turbidity Clear (Clear) Urine pH 5.0 (5.0-7.0) Ur Specific [place] 1.003 (1.003-1.030) Urine Protein <15 mg/dl (Negative) mg/dL Urine Glucose (UA) Neg (Negative) mg/dL Urine Ketones Neg (Negative) mg/dL Urine Blood Neg (Negative) Urine Nitrite Neg (Negative) Urine Bilirubin Neg (Negative) Urine Urobilinogen < 2.0 (<2.0) mg/dL Ur Leukocyte Esterase Neg (Negative) Urine WBC (Auto) < 1.0 (0.0-6.0) /HPF Urine RBC (Auto) 3.0 (0.0-6.0) /HPF U Epithel Cells (Auto) < 1.0 (0-13.0) /HPF Critical care attestation.: If time is entered above; I have spent that time in minutes in the direct care of this critically ill patient, excluding procedure time. ED Disposition Clinical Impression: Prostatitis Disposition: DC-01 TO HOME OR SELFCARE Is pt being admited?: No Does the pt Need Aspirin: No Condition: Stable Instructions: Prostatitis (ED) Prescriptions: Ciprofloxacin HCl [Cipro] 500 mg PO BID #14 tablet traMADol [Ultram] 50 mg PO Q6HR PRN #12 tablet PRN Reason: Pain Referrals: MARILU CONTRERAS MD [Staff Physician] - 3-5 Days
== END 2017-05-22 17:59 | disposition home or self-care (01) ==
LOC: ED 14:07
DX: N41.9 Inflammatory disease of prostate, unspecified (principal); I10 Essential (primary) hypertension; I25.2 Old myocardial infarction; E11.9 Type 2 diabetes mellitus without complications; K21.9 Gastro-esophageal reflux disease without esophagitis; J45.909 Unspecified asthma, uncomplicated; Z87.891 Personal history of nicotine dependence; Z88.6 Allergy status to analgesic agent; Z88.8 Allergy status to other drugs, medicaments and biological substances; Z79.82 Long term (current) use of aspirin
CPT/HCPCS: 81001; 99283

== ENCOUNTER 2017-07-02 13:59 | Emergency (ER) | payer MEDICAID ==
[2017-07-02 15:06] VITALS: BP 129/87
--- NOTE | 2017-07-02 18:30 | Emergency Department Report ---
ED Male HPI - General Chief complaint: Urogenital-Male Stated complaint: PAIN IN GROIN Time Seen by Provider: 07/02/17 18:16 Source: patient Mode of arrival: Ambulatory Limitations: No Limitations - History of Present Illness Initial comments: This is a 57-year-old male nontoxic, well nourished in appearance, no acute signs of distress presents to the ED with c/o of dsyuria x2 weeks. Patient stated he seen his primary care doctor and received "2 antibiotics shots" and was sent home with Ceftin 500 mg BID. Patient also stated he received "prostate medication" as his primary care doctor thought his prostate was enlarged. Patient stated symptoms has not resolved. Patient denies any back pain, chest pain, shortness of breath, nausea, vomiting, headache, stiff neck, numbness, tingling, hematuria, polyuria. Patient denies any STD concerns. Patient denies any testicular pain or swelling. Patient states allergies to Motrin and atorvastatin. Past medical history includes asthma, diabetes, GERD, NC and hypertension. MD Complaint: dysuria -: week(s) (2) Location: penis Radiation: none Severity: mild Severity scale (0 -10): 8 Quality: burning Consistency: constant Improves with: none Worsens with: urination denies other symptoms. denies: discharge, swelling, mass, rash, urinary retention, blood in urine, dysuria, fever, nausea/vomiting, incontinence - Related Data Home Medications Medication Instructions Recorded Confirmed Last Taken Albuterol Sulfate [Proventil Hfa] 2 inhalation IH Q6H PRN 03/04/17 03/04/17 Unknown Ferrous Gluconate [Iron] 27 mg PO DAILY 03/04/17 03/04/17 Unknown Omeprazole 40 mg PO DAILY 03/04/17 03/04/17 Unknown traMADol [Ultram 50 MG tab] 50 mg PO Q6HR PRN 03/04/17 03/04/17 Unknown Previous Rx's Medication Instructions Recorded Last Taken Type Aspirin [Aspirin BABY CHEW TAB] 81 mg PO QDAY #30 tab.chew 03/07/17 Unknown Rx Atorvastatin [Lipitor] 80 mg PO QHS #30 tablet 03/07/17 Unknown Rx Gemfibrozil [Lopid] 600 mg PO BID #60 tablet 03/07/17 Unknown Rx Isosorbide Dinitrate [Isordil 40 mg PO TID #180 tablet 03/07/17 Unknown Rx Titradose] Losartan [Cozaar] 25 mg PO QDAY #30 tablet 03/07/17 Unknown Rx Metformin HCl [Glucophage] 1,000 mg PO BID #60 tablet 03/07/17 Unknown Rx Metoprolol Xl [Metoprolol 100 mg PO QDAY #30 tablet 03/07/17 Unknown Rx SUCCINATE ER TAB] Nitroglycerin [Nitrostat] 0.4 mg SL Q5M PRN #30 tablet 03/07/17 Unknown Rx Pentoxifylline [TRENtal] 400 mg PO TID #90 tablet 03/07/17 Unknown Rx amLODIPine [Norvasc] 5 mg PO DAILY 30 Days #30 tab 04/29/17 Unknown Rx Ciprofloxacin HCl [Cipro] 500 mg PO BID #14 tablet 05/22/17 Unknown Rx traMADol [Ultram] 50 mg PO Q6HR PRN #12 tablet 05/22/17 Unknown Rx Allergies Allergy/AdvReac Type Severity Reaction Status Date / Time atorvastatin [From Lipitor] Allergy Itching Verified 03/05/17 02:56 ibuprofen Allergy Itching Verified 03/05/17 02:56 ED Review of Systems ROS: Stated complaint: PAIN IN GROIN Other details as noted in HPI Constitutional: denies: chills, fever Eyes: denies: eye pain, eye discharge, vision change ENT: denies: ear pain, throat pain Respiratory: denies: cough, shortness of breath, wheezing Cardiovascular: denies: chest pain, palpitations Endocrine: no symptoms reported Gastrointestinal: denies: abdominal pain, nausea, diarrhea Genitourinary: dysuria. denies: urgency Musculoskeletal: denies: back pain, joint swelling, arthralgia Skin: denies: rash, lesions Neurological: denies: headache, weakness, paresthesias Psychiatric: denies: anxiety, depression Hematological/Lymphatic: denies: easy bleeding, easy bruising ED Past Medical Hx - Past Medical History Hx Hypertension: Yes Hx Heart Attack/AMI: Yes Hx Diabetes: Yes Hx GERD: Yes Hx Asthma: Yes - Surgical History Hx Open Heart Surgery: Yes (Triple Bypass) - Social History Smoking Status: Never Smoker Substance Use Type: Alcohol - Medications Home Medications: Home Medications Medication Instructions Recorded Confirmed Last Taken Type Albuterol Sulfate [Proventil Hfa] 2 inhalation IH Q6H PRN 03/04/17 03/04/17 Unknown History Ferrous Gluconate [Iron] 27 mg PO DAILY 03/04/17 03/04/17 Unknown History Omeprazole 40 mg PO DAILY 03/04/17 03/04/17 Unknown History traMADol [Ultram 50 MG tab] 50 mg PO Q6HR PRN 03/04/17 03/04/17 Unknown History Aspirin [Aspirin BABY CHEW TAB] 81 mg PO QDAY #30 tab.chew 03/07/17 Unknown Rx Atorvastatin [Lipitor] 80 mg PO QHS #30 tablet 03/07/17 Unknown Rx Gemfibrozil [Lopid] 600 mg PO BID #60 tablet 03/07/17 Unknown Rx Isosorbide Dinitrate [Isordil 40 mg PO TID #180 tablet 03/07/17 Unknown Rx Titradose] Losartan [Cozaar] 25 mg PO QDAY #30 tablet 03/07/17 Unknown Rx Metformin HCl [Glucophage] 1,000 mg PO BID #60 tablet 03/07/17 Unknown Rx Metoprolol Xl [Metoprolol 100 mg PO QDAY #30 tablet 03/07/17 Unknown Rx SUCCINATE ER TAB] Nitroglycerin [Nitrostat] 0.4 mg SL Q5M PRN #30 tablet 03/07/17 Unknown Rx Pentoxifylline [TRENtal] 400 mg PO TID #90 tablet 03/07/17 Unknown Rx amLODIPine [Norvasc] 5 mg PO DAILY 30 Days #30 tab 04/29/17 Unknown Rx Ciprofloxacin HCl [Cipro] 500 mg PO BID #14 tablet 05/22/17 Unknown Rx traMADol [Ultram] 50 mg PO Q6HR PRN #12 tablet 05/22/17 Unknown Rx ED Physical Exam - General Limitations: No Limitations General appearance: alert, in no apparent distress - Head Head exam: Present: atraumatic, normocephalic - Eye Eye exam: Present: normal appearance Pupils: Present: normal accommodation - ENT ENT exam: Present: normal exam, mucous membranes moist - Neck Neck exam: Present: normal inspection, full ROM - Respiratory Respiratory exam: Present: normal lung sounds bilaterally. Absent: respiratory distress, wheezes, rales, rhonchi, stridor, chest wall tenderness, accessory muscle use, decreased breath sounds, prolonged expiratory - Cardiovascular Cardiovascular Exam: Present: regular rate, normal rhythm, normal heart sounds. Absent: bradycardia, tachycardia, irregular rhythm, systolic murmur, diastolic murmur, rubs, gallop - GI/Abdominal GI/Abdominal exam: Present: soft, normal bowel sounds - Rectal Rectal exam: Present: deferred - Extremities Exam Extremities exam: Present: normal inspection, full ROM, normal capillary refill - Back Exam Back exam: Present: normal inspection, full ROM. Absent: tenderness, CVA tenderness (R), CVA tenderness (L), muscle spasm, paraspinal tenderness, vertebral tenderness, rash noted - Neurological Exam Neurological exam: Present: alert, oriented X3, normal gait - Psychiatric Psychiatric exam: Present: normal affect, normal mood - Skin Skin exam: Present: warm, dry, intact, normal color. Absent: rash ED Course Vital Signs 07/02/17 15:03 Temperature 98 F Pulse Rate 85 Blood Pressure 129/87 O2 Sat by Pulse 100 Oximetry - Reevaluation(s) Reevaluation #1: 07/02/17 18:36 Patient is speaking in full sentences with no signs of distress noted. ED Medical Decision Making - Medical Decision Making This is a 57-year-old male that presents with dysuria. Patient is stable and was examined by me. There is no CVA tenderness. UA is normal with no signs of UTI. Urine culture pending. Patient did state to me that he received 2 shots of antibiotics in his doctor's office and just finished his dose of Ceftin. Patient also stated that he has been diagnose with prostate problems. I'll not treat patient for his dysuria as it may be related to his prostate and patient was referred to see back to his primary care doctor. At time of discharge, the patient does not seem toxic or ill in appearance. No acute signs of distress noted. Patient agrees to discharge treatment plan of care. No further questions noted by the patient. Critical care attestation.: If time is entered above; I have spent that time in minutes in the direct care of this critically ill patient, excluding procedure time. ED Disposition Clinical Impression: Dysuria Disposition: DC-01 TO HOME OR SELFCARE Is pt being admited?: No Does the pt Need Aspirin: No Condition: Stable Instructions: Dysuria (ED) Additional Instructions: Follow-up with a primary care doctor in 3-5 days or if symptoms worsen and continue return to emergency room as soon as possible. Referrals: JENNIFER CLEVELAND MD [Primary Care Provider] - 3-5 Days PRIMARY CARE, [Referring] - 3-5 Days [facility] [Outside] - 3-5 Days Forms: Work/School Release Form(ED)
[2017-07-02 18:39] LABS: Bilirubin,Urine NEG (Negative); Blood,Urine NEG (Negative); Color,Urine Straw (Yellow); Protein,Urine <15 mg/dL mg/dL (Negative); RBC,Urine < 1.0 /HPF (0.0-6.0); Urobilinogen,Urine < 2.0 mg/dL (<2.0); WBC,Urine < 1.0 /HPF (0.0-6.0)
== END 2017-07-02 19:00 | disposition home or self-care (01) ==
LOC: ED 13:59
DX: R30.0 Dysuria (principal); I10 Essential (primary) hypertension; E11.9 Type 2 diabetes mellitus without complications; I25.2 Old myocardial infarction; K21.9 Gastro-esophageal reflux disease without esophagitis; Z79.82 Long term (current) use of aspirin; Z88.6 Allergy status to analgesic agent; Z88.8 Allergy status to other drugs, medicaments and biological substances
CPT/HCPCS: 81001; 87086; 99283

== ENCOUNTER 2017-07-17 07:39 | Emergency (ER) | payer MEDICAID ==
[2017-07-17 07:45] VITALS: BP 138/91
[2017-07-17 08:25] LABS: Bilirubin,Urine NEG (Negative); Blood,Urine SM (Negative); Color,Urine Yellow (Yellow); Protein,Urine <15 mg/dL mg/dL (Negative); Urobilinogen,Urine < 2.0 mg/dL (<2.0)
[2017-07-17] MEDS ORDERED: TYLENOL PO ONE (09:53)
--- NOTE | 2017-07-17 10:02 | Emergency Department Report ---
ED Male HPI - General Chief complaint: Urogenital-Male Stated complaint: IRRITATION IN GROIN Time Seen by Provider: 07/17/17 09:52 Source: patient Mode of arrival: Ambulatory Limitations: No Limitations - History of Present Illness Initial comments: 57-year-old -[place] male with extensive past medical history of hypertension diabetes asthma GERD history of heart attack with a triple bypass comes in today stating he has irritation to his penis. Patient reports that this been going on for a couple of weeks. He states his itching and burning and has to push out his urine. Patient has been diagnosed with an enlarged prostate but has ran out of his Flomax. She reports she has appointment with urology on 07/24/17. He was seen here on 07/02/17 With the same complaint. MD Complaint: dysuria, other (urinary urgency) - Related Data Home Medications Medication Instructions Recorded Confirmed Last Taken Albuterol Sulfate [Proventil Hfa] 2 inhalation IH Q6H PRN 03/04/17 03/04/17 Unknown Ferrous Gluconate [Iron] 27 mg PO DAILY 03/04/17 03/04/17 Unknown Omeprazole 40 mg PO DAILY 03/04/17 03/04/17 Unknown traMADol [Ultram 50 MG tab] 50 mg PO Q6HR PRN 03/04/17 03/04/17 Unknown Previous Rx's Medication Instructions Recorded Last Taken Type Aspirin [Aspirin BABY CHEW TAB] 81 mg PO QDAY #30 tab.chew 03/07/17 Unknown Rx Atorvastatin [Lipitor] 80 mg PO QHS #30 tablet 03/07/17 Unknown Rx Gemfibrozil [Lopid] 600 mg PO BID #60 tablet 03/07/17 Unknown Rx Isosorbide Dinitrate [Isordil 40 mg PO TID #180 tablet 03/07/17 Unknown Rx Titradose] Losartan [Cozaar] 25 mg PO QDAY #30 tablet 03/07/17 Unknown Rx Metformin HCl [Glucophage] 1,000 mg PO BID #60 tablet 03/07/17 Unknown Rx Metoprolol Xl [Metoprolol 100 mg PO QDAY #30 tablet 03/07/17 Unknown Rx SUCCINATE ER TAB] Nitroglycerin [Nitrostat] 0.4 mg SL Q5M PRN #30 tablet 03/07/17 Unknown Rx Pentoxifylline [TRENtal] 400 mg PO TID #90 tablet 03/07/17 Unknown Rx amLODIPine [Norvasc] 5 mg PO DAILY 30 Days #30 tab 04/29/17 Unknown Rx Ciprofloxacin HCl [Cipro] 500 mg PO BID #14 tablet 05/22/17 Unknown Rx traMADol [Ultram] 50 mg PO Q6HR PRN #12 tablet 05/22/17 Unknown Rx Allergies Allergy/AdvReac Type Severity Reaction Status Date / Time atorvastatin [From Lipitor] Allergy Itching Verified 07/17/17 07:42 ibuprofen Allergy Itching Verified 07/17/17 07:42 ED Review of Systems ROS: Stated complaint: IRRITATION IN GROIN Other details as noted in HPI Constitutional: denies: chills, fever Eyes: denies: eye pain, eye discharge, vision change ENT: denies: ear pain, throat pain Respiratory: denies: cough, shortness of breath, wheezing Cardiovascular: denies: chest pain, palpitations Endocrine: no symptoms reported Gastrointestinal: denies: abdominal pain, nausea, diarrhea Genitourinary: urgency, dysuria Musculoskeletal: denies: back pain, joint swelling, arthralgia Skin: denies: rash, lesions Neurological: denies: headache, weakness, paresthesias Psychiatric: denies: anxiety, depression Hematological/Lymphatic: denies: easy bleeding, easy bruising ED Past Medical Hx - Past Medical History Hx Hypertension: Yes Hx Heart Attack/AMI: Yes Hx Diabetes: Yes Hx GERD: Yes Hx Asthma: Yes - Surgical History Hx Open Heart Surgery: Yes (Triple Bypass) - Social History Smoking Status: Never Smoker Substance Use Type: Alcohol - Medications Home Medications: Home Medications Medication Instructions Recorded Confirmed Last Taken Type Albuterol Sulfate [Proventil Hfa] 2 inhalation IH Q6H PRN 03/04/17 03/04/17 Unknown History Ferrous Gluconate [Iron] 27 mg PO DAILY 03/04/17 03/04/17 Unknown History Omeprazole 40 mg PO DAILY 03/04/17 03/04/17 Unknown History traMADol [Ultram 50 MG tab] 50 mg PO Q6HR PRN 03/04/17 03/04/17 Unknown History Aspirin [Aspirin BABY CHEW TAB] 81 mg PO QDAY #30 tab.chew 03/07/17 Unknown Rx Atorvastatin [Lipitor] 80 mg PO QHS #30 tablet 03/07/17 Unknown Rx Gemfibrozil [Lopid] 600 mg PO BID #60 tablet 03/07/17 Unknown Rx Isosorbide Dinitrate [Isordil 40 mg PO TID #180 tablet 03/07/17 Unknown Rx Titradose] Losartan [Cozaar] 25 mg PO QDAY #30 tablet 03/07/17 Unknown Rx Metformin HCl [Glucophage] 1,000 mg PO BID #60 tablet 03/07/17 Unknown Rx Metoprolol Xl [Metoprolol 100 mg PO QDAY #30 tablet 03/07/17 Unknown Rx SUCCINATE ER TAB] Nitroglycerin [Nitrostat] 0.4 mg SL Q5M PRN #30 tablet 03/07/17 Unknown Rx Pentoxifylline [TRENtal] 400 mg PO TID #90 tablet 03/07/17 Unknown Rx amLODIPine [Norvasc] 5 mg PO DAILY 30 Days #30 tab 04/29/17 Unknown Rx Ciprofloxacin HCl [Cipro] 500 mg PO BID #14 tablet 05/22/17 Unknown Rx traMADol [Ultram] 50 mg PO Q6HR PRN #12 tablet 05/22/17 Unknown Rx ED Physical Exam - General Limitations: No Limitations General appearance: alert, in no apparent distress - Head Head exam: Present: atraumatic, normocephalic - Eye Eye exam: Present: normal appearance - ENT ENT exam: Present: mucous membranes moist - Neck Neck exam: Present: normal inspection - Respiratory Respiratory exam: Present: normal lung sounds bilaterally. Absent: respiratory distress - Cardiovascular Cardiovascular Exam: Present: regular rate, normal rhythm. Absent: systolic murmur, diastolic murmur, rubs, gallop - GI/Abdominal GI/Abdominal exam: Present: soft, normal bowel sounds - Rectal Rectal exam: Present: normal inspection, normal rectal tone, prostate enlargement. Absent: prostate tenderness - exam: Present: normal inspection, circumcision. Absent: testicular tenderness, urethral discharge, scrotal swelling External exam: Present: normal external exam. Absent: erythema, swelling, lesions - Extremities Exam Extremities exam: Present: normal inspection - Back Exam Back exam: Present: normal inspection, full ROM - Neurological Exam Neurological exam: Present: alert, oriented X3 - Psychiatric Psychiatric exam: Present: normal affect, normal mood - Skin Skin exam: Present: warm, dry, intact, normal color. Absent: rash ED Course Vital Signs 07/17/17 07:42 Temperature 98.4 F Pulse Rate 73 Respiratory 16 Rate Blood Pressure 138/91 O2 Sat by Pulse 99 Oximetry ED Medical Decision Making - Medical Decision Making Assessment evaluated with this provider fast track. Discussed the patient he's been dealing with this since May 2017. I discussed this patient is very important for him to follow up with the urologist or his primary care provider. Discussed the patient that his urine was not impressive for urinary tract infection. He needs to continue with his Flomax has been prescribed. He verbalized understanding. Critical care attestation.: If time is entered above; I have spent that time in minutes in the direct care of this critically ill patient, excluding procedure time. ED Disposition Clinical Impression: Urinary urgency Disposition: DC-01 TO HOME OR SELFCARE Is pt being admited?: No Does the pt Need Aspirin: No Condition: Stable Instructions: Benign Prostatic Hypertrophy (ED) Additional Instructions: Please refill your Flomax 0.5 mg daily. Follow-up with your urologist and primary care provider. Referrals: PRIMARY CARE [Primary Care Provider] - 3-5 Days Forms: Work/School Release Form(ED)
== END 2017-07-17 10:35 | disposition home or self-care (01) ==
LOC: ED 07:39
DX: N39.0 Urinary tract infection, site not specified (principal); I11.0 Hypertensive heart disease with heart failure; E11.9 Type 2 diabetes mellitus without complications; K21.9 Gastro-esophageal reflux disease without esophagitis; J45.909 Unspecified asthma, uncomplicated; Z95.1 Presence of aortocoronary bypass graft; Z79.82 Long term (current) use of aspirin; Z88.8 Allergy status to other drugs, medicaments and biological substances
CPT/HCPCS: 81001; 87086; 99283

== ENCOUNTER 2018-01-06 12:52 | Emergency (ER) | payer OTHER, MEDICAID ==
[2018-01-06 13:14] VITALS: BP 100/62
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
--- NOTE | 2018-01-06 16:25 | XRay Report ---
FINAL REPORT PROCEDURE: XR CHEST ROUTINE 2V TECHNIQUE: PA and lateral chest radiographs were obtained. CPT 64725 HISTORY: chest pain COMPARISON: No prior studies are available for comparison. FINDINGS: Heart: Normal. Mediastinum/Vessels: Normal. Lungs/Pleural space: No infiltrate, effusion, or pneumothorax. Bony thorax: No acute osseous abnormality. Other: IMPRESSION: No radiographic evidence of acute abnormality.
== END 2018-01-06 17:08 | disposition home or self-care (01) ==
LOC: ED 12:52
DX: M94.0 Chondrocostal junction syndrome [Tietze] (principal); I10 Essential (primary) hypertension; I25.2 Old myocardial infarction; E11.9 Type 2 diabetes mellitus without complications; K21.9 Gastro-esophageal reflux disease without esophagitis; J45.909 Unspecified asthma, uncomplicated; Z87.891 Personal history of nicotine dependence; Z88.6 Allergy status to analgesic agent; Z88.8 Allergy status to other drugs, medicaments and biological substances; Z79.82 Long term (current) use of aspirin; V89.2XXA Person injured in unspecified motor-vehicle accident, traffic, initial encounter; Y93.89 Activity, other specified; Y92.488 Other paved roadways as the place of occurrence of the external cause; Y99.8 Other external cause status
CPT/HCPCS: 71046; 99283

== ENCOUNTER 2019-03-27 14:14 | Emergency (ER) | payer MEDICAID ==
--- NOTE | 2019-03-27 14:30 | Event Note ---
ED Screening Note ED Screening Note: right sided testicular pain that began 3 days ago no swelling in the testicle no dysuria no urinary frequency no N/V/D no fever denies having before PMHx CABG, DM, HTN allergy: atorvastatin and ibuprofen This initial assessment/diagnostic orders/clinical plan/treatment(s) is/are subject to change based on patients health status, clinical progression and re- assessment by fellow clinical providers in the ED. Further treatment and workup at subsequent clinical providers discretion. Patient/guardian urged not to elope from the ED as their condition may be serious if not clinically assessed and managed. Initial orders include: UA, labs, US
[2019-03-27 15:51] LABS: Bacteria,Urine 1+ /HPF (Negative); Bilirubin,Urine NEG (Negative); Blood,Urine NEG (Negative); Color,Urine Amber (Yellow); Mucus,Urine 2+ /HPF; Protein,Urine <15 mg/dL mg/dL (Negative); RBC,Urine < 1.0 /HPF (0.0-6.0); Urobilinogen,Urine < 2.0 mg/dL (<2.0)
[2019-03-27 16:30] LABS: Basophils % (Auto) 0.3 % (0.0-1.8); Eosinophils % (Auto) 0.3 % (0.0-4.3); Hematocrit 43.1 % (35.5-45.6); Hemoglobin 14.7 gm/dl (11.8-15.2); Lymphocytes # (Auto) 1.5 K/mm3 (1.2-5.4); Lymphocytes % (Auto) 10.9 % (13.4-35.0); Mean Corpuscular HGB Conc 34 % (32-34); Mean Corpuscular Volume 89 fl (84-94); Monocytes # (Auto) 1.5 K/mm3 (0.0-0.8); Monocytes % (Auto) 10.8 % (0.0-7.3); Platelet Count 134 K/mm3 (140-440); Red Blood Count 4.85 M/mm3 (3.65-5.03); Red Cell Distribution Width 13.7 % (13.2-15.2)
[2019-03-27 16:50] LABS: Alanine Aminotransferase 65 units/L (7-56); Albumin 3.9 g/dL (3.9-5); BUN/Creatinine Ratio 9; Blood Urea Nitrogen 9 mg/dL (9-20); Calcium 9.1 mg/dL (8.4-10.2); Hemolysis Index 18
--- NOTE | 2019-03-27 17:02 | Ultrasound Report ---
ULTRASOUND SCROTUM INDICATION / CLINICAL INFORMATION: right testicular pain x 3 days. COMPARISON: None available. FINDINGS -- RIGHT TESTIS: Size = 4.0 x 1.9 x 2.9 cm. - Appearance: No significant abnormality. - Cyst or Mass: None. - Color Doppler Flow: No significant abnormality. EPIDIDYMIS: No significant abnormality. HYDROCELE: None. VARICOCELE: None demonstrated. FINDINGS -- LEFT TESTIS: Size = 4.0 x 1.9 x 2.8 cm. - Appearance: No significant abnormality. - Cyst or Mass: None. - Color Doppler Flow: No significant abnormality. EPIDIDYMIS: No significant abnormality. HYDROCELE: None. VARICOCELE: Small varicocele. ADDITIONAL FINDINGS: None. IMPRESSION: 1. Small varicocele on the left. 2. No significant testicular abnormality. Signer Name: Mervin Fabian MD Signed: 03/27/2019 4:58 PM Workstation Name: [id number]
[2019-03-27] MEDS ORDERED: POTASSIUM CHLORIDE ER 20 MEQ TAB PO ONE (22:39)
--- NOTE | 2019-03-27 23:29 | Emergency Department Report ---
<RAOUL MESSINA - Last Filed: 03/28/19 06:58> ED Male HPI - General Chief complaint: Urogenital-Male Stated complaint: GROIN PAIN Time Seen by Provider: 03/27/19 14:27 Source: patient Mode of arrival: Ambulatory Limitations: No Limitations - History of Present Illness Initial comments: This is a 59-year-old male nontoxic, well nourished in appearance, no acute signs of distress presents to the ED with c/o of right-sided testicular pain 5 days. Patient stated that symptoms radiates to right sided abdominal area and to flank. Patient denies any trauma. Patient stated he started to have some hematuria today. Patient denies any penile discharge, ulcers or lesions. Patient denies any testicular swelling or discoloration. Patient denies any chest pain, shortness of breath, fever, chills, nausea, vomiting, headache or stiff neck. Patient stated allergies to ibuprofen and atorvastatin. Past medical history includes diabetes, asthma, GERD, [place] and hypertension. MD Complaint: testicle pain -: days(s) (4) Location: right testicle Severity: moderate Severity scale (0 -10): 8 Quality: aching Consistency: constant Improves with: none Worsens with: palpation blood in urine. denies: discharge, swelling, mass, rash, urinary retention, dysuria, fever, nausea/vomiting, incontinence - Related Data Home Medications Medication Instructions Recorded Confirmed Last Taken Albuterol Sulfate [Proventil Hfa] 2 inhalation IH Q6H PRN 03/04/17 03/04/17 Unknown Ferrous Gluconate [Iron] 27 mg PO DAILY 03/04/17 03/04/17 Unknown Omeprazole 40 mg PO DAILY 03/04/17 03/04/17 Unknown traMADoL [Ultram 50 MG tab] 50 mg PO Q6HR PRN 03/04/17 03/04/17 Unknown Previous Rx's Medication Instructions Recorded Last Taken Type Aspirin [Aspirin BABY CHEW TAB] 81 mg PO QDAY #30 tab.chew 03/07/17 Unknown Rx Atorvastatin [Lipitor] 80 mg PO QHS #30 tablet 03/07/17 Unknown Rx Gemfibrozil [Lopid] 600 mg PO BID #60 tablet 03/07/17 Unknown Rx Isosorbide Dinitrate [Isordil 40 mg PO TID #180 tablet 03/07/17 Unknown Rx Titradose] Losartan [Cozaar] 25 mg PO QDAY #30 tablet 03/07/17 Unknown Rx Metformin HCl [Glucophage] 1,000 mg PO BID #60 tablet 03/07/17 Unknown Rx Metoprolol Xl [Metoprolol 100 mg PO QDAY #30 tablet 03/07/17 Unknown Rx SUCCINATE ER TAB] Nitroglycerin [Nitrostat] 0.4 mg SL Q5M PRN #30 tablet 03/07/17 Unknown Rx Pentoxifylline [TRENtal] 400 mg PO TID #90 tablet 03/07/17 Unknown Rx amLODIPine 5 mg PO DAILY 30 Days #30 tab 04/29/17 Unknown Rx Ciprofloxacin HCl [Cipro] 500 mg PO BID #14 tablet 05/22/17 Unknown Rx traMADoL [Ultram] 50 mg PO Q6HR PRN #12 tablet 05/22/17 Unknown Rx Acetaminophen [Tylenol Arthritis] 650 mg PO TID #12 tablet.er 01/06/18 Unknown Rx methOCARBAMOL [Robaxin TAB] 500 mg PO BID #10 tab 01/06/18 Unknown Rx Acetaminophen/Codeine [Tylenol 1 tab PO Q6H PRN #12 tab 03/28/19 Unknown Rx /Codeine # 3 tab] levoFLOXacin [Levaquin TAB] 500 mg PO QDAY #10 tablet 03/28/19 Unknown Rx Allergies Allergy/AdvReac Type Severity Reaction Status Date / Time atorvastatin [From Lipitor] Allergy Itching Verified 07/17/17 07:42 ibuprofen Allergy Itching Verified 07/17/17 07:42 ED Review of Systems Constitutional: denies: chills, fever Eyes: denies: eye pain, eye discharge, vision change ENT: denies: ear pain, throat pain Respiratory: denies: cough, shortness of breath, wheezing Cardiovascular: denies: chest pain, palpitations Endocrine: no symptoms reported Gastrointestinal: denies: abdominal pain, nausea, diarrhea Genitourinary: hematuria, testicular pain. denies: urgency, dysuria, frequency, discharge, testicular mass Musculoskeletal: denies: back pain, joint swelling, arthralgia Skin: denies: rash, lesions Neurological: denies: headache, weakness, paresthesias Psychiatric: denies: anxiety, depression Hematological/Lymphatic: denies: easy bleeding, easy bruising ED Past Medical Hx - Past Medical History Previous Medical History?: Yes Hx Hypertension: Yes Hx Heart Attack/AMI: Yes (CABBAGE) Hx Diabetes: Yes Hx GERD: Yes Hx Asthma: Yes - Surgical History Past Surgical History?: Yes Hx Open Heart Surgery: Yes (Triple Bypass) - Social History Smoking Status: Never Smoker Substance Use Type: None - Medications Home Medications: Home Medications Medication Instructions Recorded Confirmed Last Taken Type Albuterol Sulfate [Proventil Hfa] 2 inhalation IH Q6H PRN 03/04/17 03/04/17 Unknown History Ferrous Gluconate [Iron] 27 mg PO DAILY 03/04/17 03/04/17 Unknown History Omeprazole 40 mg PO DAILY 03/04/17 03/04/17 Unknown History traMADoL [Ultram 50 MG tab] 50 mg PO Q6HR PRN 03/04/17 03/04/17 Unknown History Aspirin [Aspirin BABY CHEW TAB] 81 mg PO QDAY #30 tab.chew 03/07/17 Unknown Rx Atorvastatin [Lipitor] 80 mg PO QHS #30 tablet 03/07/17 Unknown Rx Gemfibrozil [Lopid] 600 mg PO BID #60 tablet 03/07/17 Unknown Rx Isosorbide Dinitrate [Isordil 40 mg PO TID #180 tablet 03/07/17 Unknown Rx Titradose] Losartan [Cozaar] 25 mg PO QDAY #30 tablet 03/07/17 Unknown Rx Metformin HCl [Glucophage] 1,000 mg PO BID #60 tablet 03/07/17 Unknown Rx Metoprolol Xl [Metoprolol 100 mg PO QDAY #30 tablet 03/07/17 Unknown Rx SUCCINATE ER TAB] Nitroglycerin [Nitrostat] 0.4 mg SL Q5M PRN #30 tablet 03/07/17 Unknown Rx Pentoxifylline [TRENtal] 400 mg PO TID #90 tablet 03/07/17 Unknown Rx amLODIPine 5 mg PO DAILY 30 Days #30 tab 04/29/17 Unknown Rx Ciprofloxacin HCl [Cipro] 500 mg PO BID #14 tablet 05/22/17 Unknown Rx traMADoL [Ultram] 50 mg PO Q6HR PRN #12 tablet 05/22/17 Unknown Rx Acetaminophen [Tylenol Arthritis] 650 mg PO TID #12 tablet.er 01/06/18 Unknown Rx methOCARBAMOL [Robaxin TAB] 500 mg PO BID #10 tab 10/07/18 Unknown Rx Acetaminophen/Codeine [Tylenol 1 tab PO Q6H PRN #12 tab 03/28/19 Unknown Rx /Codeine # 3 tab] levoFLOXacin [Levaquin TAB] 500 mg PO QDAY #10 tablet 03/28/19 Unknown Rx ED Physical Exam - General Limitations: No Limitations General appearance: alert, in no apparent distress - Head Head exam: Present: atraumatic, normocephalic - Eye Eye exam: Present: normal appearance - Neck Neck exam: Present: normal inspection, full ROM. Absent: tenderness, meningismus, lymphadenopathy - Respiratory Respiratory exam: Present: normal lung sounds bilaterally. Absent: respiratory distress, wheezes, rales, rhonchi, stridor, chest wall tenderness, accessory muscle use, decreased breath sounds, prolonged expiratory - Cardiovascular Cardiovascular Exam: Present: regular rate, normal rhythm, normal heart sounds. Absent: irregular rhythm, systolic murmur, diastolic murmur, rubs, gallop - GI/Abdominal GI/Abdominal exam: Present: soft, tenderness (right sided abdominal area), normal bowel sounds. Absent: distended, guarding, rebound, rigid, diminished bowel sounds - exam: Present: testicular tenderness (right sided), other (no discoloration. ). Absent: urethral discharge, scrotal swelling, vertical testicular lie External exam: Present: normal external exam. Absent: erythema, swelling, lesions, lacerations, ecchymosis, bleeding - Extremities Exam Extremities exam: Present: normal inspection, full ROM - Back Exam Back exam: Present: normal inspection, full ROM. Absent: tenderness, CVA tenderness (R), CVA tenderness (L), muscle spasm, paraspinal tenderness, vertebral tenderness, rash noted - Neurological Exam Neurological exam: Present: alert, oriented X3, normal gait - Psychiatric Psychiatric exam: Present: normal affect, normal mood - Skin Skin exam: Present: warm, dry, intact, normal color. Absent: rash ED Course - Reevaluation(s) Reevaluation #1: 03/27/19 23:40 Patient is speaking in full sentences with no signs of distress noted. Reevaluation #2: 03/28/19 02:28 Patient is presently comfortably with no signs of distress. Pain is currently under control. Reevaluation #3: 03/28/19 05:15 Patient is resting comfortably. Vital signs show the patient is currently febrile. We'll order 1 L of normal saline as well as give patient Tylenol. Currently stable awaiting for CT scan. ED Medical Decision Making - Lab Data Result diagrams: 03/27/19 15:50 03/27/19 15:50 - Medical Decision Making This is a 59-year-old male that presents with testicular varicocele. Patient is stable and was examined by me. A CT scan with contrast has been obtained due to right lower abdominal pain with testicular pain and white count. CT scan was unremarkable. Ultrasound has been obtained and dictated by radiologist with impression of variceal. Patient did receive clindamycin IV. I will discharge also patient with levofloxacin. Vital signs are stable prior to discharge. Patient is able for a by mouth medications. Patient was resuscitated in the ER. Stated pain has resolved and subsided. Patient was instructed to Follow-up with a primary care and urologist doctor in 3-5 days or if symptoms worsen and continue return to emergency room as soon as possible. At time of discharge, the patient does not seem toxic or ill in appearance. No acute signs of distress noted. Patient agrees to discharge treatment plan of care. No further questions noted by the patient. ED Disposition Clinical Impression: Testicular pain Abdominal pain Qualifiers: Abdominal location: right lower quadrant Qualified Code(s): R10.31 - Right lower quadrant pain Disposition: DC-01 TO HOME OR SELFCARE Is pt being admited?: No Does the pt Need Aspirin: No Condition: Stable Instructions: Acetaminophen/Codeine (By mouth) Additional Instructions: Follow-up with a primary care and urologist doctor in 3-5 days or if symptoms worsen and continue return to emergency room as soon as possible. Do not operate any machinery while taking Tylenol with codeine as this may cause drowsiness. Prescriptions: levoFLOXacin [Levaquin TAB] 500 mg PO QDAY #10 tablet Acetaminophen/Codeine [Tylenol /Codeine # 3 tab] 1 tab PO Q6H PRN #12 tab PRN Reason: Pain , Severe (7-10) Referrals: JAMEL PEREA MD [Referring] - 3-5 Days NEGRO SCHILLING MD [Staff Physician] - 3-5 Days VISH MAYORGA MD [Staff Physician] - 3-5 Days [facility] [Outside] - 3-5 Days Forms: Work/School Release Form(ED) <TIEN OTNIVEROS - Last Filed: 04/07/19 13:58> ED Review of Systems ROS: Stated complaint: GROIN PAIN Other details as noted in HPI ED Course Vital Signs 03/27/19 03/27/19 03/28/19 14:28 22:47 03:55 Temperature 98.7 F 98.9 F 100.6 F H Pulse Rate 91 H 75 87 Respiratory 15 18 18 Rate Blood Pressure 116/78 137/68 Blood Pressure 146/87 [Right] O2 Sat by Pulse 98 97 97 Oximetry 03/28/19 07:05 Temperature 98.1 F Pulse Rate 87 Respiratory 20 Rate Blood Pressure Blood Pressure [Right] O2 Sat by Pulse 100 Oximetry ED Medical Decision Making - Lab Data Result diagrams: 03/27/19 15:50 03/27/19 15:50 Critical care attestation.: If time is entered above; I have spent that time in minutes in the direct care of this critically ill patient, excluding procedure time. ED Disposition Is pt being admited?: No Does the pt Need Aspirin: No
[2019-03-27] MEDS ORDERED: SODIUM CHLORIDE 0.9% 1000 ML 1,000 ML IV ONE (23:33)
[2019-03-27] MEDS ORDERED: ONDANSETRON 4 MG/2 ML INJ IV ONE (23:33)
[2019-03-27] MEDS ORDERED: MORPHINE 4 MG/1 ML INJ IV ONE (23:33)
[2019-03-28 04:01] VITALS: BP 137/68
[2019-03-28] MEDS ORDERED: SODIUM CHLORIDE 0.9% 1000 ML 1,000 ML IV ONE (05:14)
[2019-03-28] MEDS ORDERED: ACETAMINOPHEN 500 MG TAB PO ONE (05:14)
--- NOTE | 2019-03-28 06:34 | Cat Scan Report ---
CT ABDOMEN AND PELVIS WITH CONTRAST INDICATION / CLINICAL INFORMATION: testicular pain r/o FOURNIERS GANGRENE. TECHNIQUE: Axial CT images were obtained through the abdomen and pelvis after either cc Omnipaque 300 milligram percent IV contrast. All CT scans at this location are performed using CT dose reduction for ALARA b y means of automated exposure control. COMPARISON: None available. FINDINGS: LOWER CHEST: Airspace process lingula segment left upper lobe LIVER: No significant abnormality. GALLBLADDER: No significant abnormality. BILE DUCTS: No significant abnormality. PANCREAS: No significant abnormality. SPLEEN: No significant abnormality. ADRENALS: The adrenal glands are prominent bilaterally RIGHT KIDNEY and URETER: No significant abnormality. LEFT KIDNEY and URETER: No significant abnormality. STOMACH and SMALL BOWEL: No significant abnormality. COLON: No significant abnormality. APPENDIX: No significant abnormality. PERITONEUM: No free fluid. No free air. No fluid collection. LYMPH NODES: No significant adenopathy. AORTA and ARTERIES: Calcified atherosclerotic plaques present involving the abdominal aorta and its m ajor branches IVC and VEINS: No significant abnormality. URINARY BLADDER: No significant abnormality. REPRODUCTIVE ORGANS: No significant abnormality. ADDITIONAL FINDINGS: None. SKELETAL SYSTEM: Degenerative changes of the lumbar spine noted.. IMPRESSION: 1. No significant abnormality. Signer Name: Nick Valerio MD Signed: 03/28/2019 6:30 AM Workstation Name: [id number]
== END 2019-03-28 07:35 | disposition home or self-care (01) ==
LOC: ED 14:14
DX: N50.811 Right testicular pain (principal); R10.9 Unspecified abdominal pain; I10 Essential (primary) hypertension; I21.9 Acute myocardial infarction, unspecified; E11.9 Type 2 diabetes mellitus without complications; K21.9 Gastro-esophageal reflux disease without esophagitis; J45.909 Unspecified asthma, uncomplicated; Z98.890 Other specified postprocedural states; Z79.899 Other long term (current) drug therapy; Z88.8 Allergy status to other drugs, medicaments and biological substances
CPT/HCPCS: 36415; 74177; 80053; 81001; 85025; 93975; 96365; 96375; 99284; J2270; J2405; J7030

== ENCOUNTER 2020-08-10 04:38 | Observation (INO) | payer MEDICAID ==
--- NOTE | 2020-08-10 05:30 | XRay Report ---
CHEST 1 VIEW 08/10/2020 4:11 AM INDICATION / CLINICAL INFORMATION: Chest Pain. COMPARISON: 01/06/2018. FINDINGS: SUPPORT DEVICES: None. HEART / MEDIASTINUM: Mild cardiac enlargement. LUNGS / PLEURA: No significant pulmonary or pleural abnormality. No pneumothorax. ADDITIONAL FINDINGS: No significant additional findings. IMPRESSION: No acute abnormality. Signer Name: Navjot Barbosa MD Signed: 08/10/2020 5:26 AM Workstation Name: [id number]
[2020-08-10 05:35] LABS: Basophils # (Auto) 0.1 K/mm3 (0.0-0.1); Eosinophils # (Auto) 0.2 K/mm3 (0.0-0.4); Hematocrit 39.3 % (35.5-45.6); Hemoglobin 13.2 gm/dl (11.8-15.2); Lymphocytes # (Auto) 2.6 K/mm3 (1.2-5.4); Lymphocytes % (Auto) 40.2 % (13.4-35.0); Mean Corpuscular HGB Conc 34 % (32-34); Mean Corpuscular Volume 89 fl (84-94); Monocytes # (Auto) 0.6 K/mm3 (0.0-0.8); Platelet Count 139 K/mm3 (140-440); Red Blood Count 4.42 M/mm3 (3.65-5.03); Red Cell Distribution Width 14.5 % (13.2-15.2)
[2020-08-10 05:57] LABS: Alanine Aminotransferase 62 units/L (7-56); Albumin 3.8 g/dL (3.9-5); BUN/Creatinine Ratio 17; Blood Urea Nitrogen 15 mg/dL (9-20); Calcium 8.6 mg/dL (8.4-10.2); Hemolysis Index 4
--- NOTE | 2020-08-10 07:01 | Emergency Department Report ---
ED Chest Pain HPI - General Chief Complaint: Chest Pain Stated Complaint: CHEST PAIN Time Seen by Provider: 08/10/20 06:14 Source: patient, EMS Mode of arrival: Stretcher Limitations: No Limitations - History of Present Illness Initial Comments: 60-year-old male, history of hypertension, diabetes, CAD status post CABG approximately 4 years ago, presents to ED with chest pain x2 days. Patient states pain is located in the left chest and radiates into the left arm. Pain is described as tightness, similar to when he previously had to have his CABG. He reports associated nausea and diaphoresis. Patient reports the pain has been intermittent, no aggravating factors. Patient states over the last couple days he has been taking liquid nitro which has been relieving the pain. However, this morning, patient states he took 3 nitro and continue to have pain, so EMS was called. Patient was given aspirin and an additional nitro by EMS. Patient reports some improvement of his pain at this time. 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 denies: vomting, dyspnea Other Symptoms: denies: cough, fever, leg swelling Treatments Prior to Arrival: aspirin, nitroglycerin - Related Data Home Medications Medication Instructions Recorded Confirmed Last Taken Albuterol Sulfate [Proventil Hfa] 2 inhalation IH Q6H PRN 03/04/17 08/10/20 08/09/20 22:00 Omeprazole 40 mg PO DAILY 03/04/17 08/10/20 08/10/20 10:43 traMADoL [Ultram 50 MG tab] 50 mg PO Q6HR PRN 03/04/17 08/10/20 08/09/20 22:00 Clopidogrel [Plavix] 75 mg PO DAILY 08/10/20 08/10/20 08/09/20 22:00 Isosorbide Dinitrate [Isordil] 60 mg PO DAILY 08/10/20 08/10/20 08/09/20 Metformin HCl [Glucophage] 500 mg PO BID 08/10/20 08/10/20 08/10/20 10:41 Metoprolol Xl [Metoprolol 200 mg PO QDAY 08/10/20 08/10/20 08/10/20 10:42 SUCCINATE ER TAB] Previous Rx's Medication Instructions Recorded Last Taken Type Aspirin [Aspirin BABY CHEW TAB] 81 mg PO QDAY #30 tab.chew 03/07/17 08/10/20 10:42 Rx Atorvastatin [Lipitor] 80 mg PO QHS #30 tablet 03/07/17 08/09/20 22:00 Rx Losartan [Cozaar] 25 mg PO QDAY #30 tablet 03/07/17 08/10/20 10:41 Rx Nitroglycerin [Nitrostat] 0.4 mg SL Q5M PRN #30 tablet 03/07/17 08/09/20 13:00 Rx Allergies Allergy/AdvReac Type Severity Reaction Status Date / Time atorvastatin [From Lipitor] Allergy Itching Verified 07/17/17 07:42 ibuprofen Allergy Itching Verified 07/17/17 07:42 Heart Score - HEART Score History: Moderately suspicious EKG: Non-specific Age: 45-65 Risk factors: > 3 risk factors or hx of atherosclerotic disease Troponin: < normal limit HEART Score: 5 - EKG Read Time Time EKG Completed: 04:51 EKG Read Time: 04:55 ED Review of Systems ROS: Stated complaint: CHEST PAIN Other details as noted in HPI ED Past Medical Hx - Past Medical History Hx Hypertension: Yes Hx Heart Attack/AMI: Yes (CABBAGE) Hx Diabetes: Yes Hx GERD: Yes Hx Asthma: Yes - Surgical History Hx Open Heart Surgery: Yes (Triple Bypass) - Social History Smoking Status: Never Smoker - Medications Home Medications: Home Medications Medication Instructions Recorded Confirmed Last Taken Type Albuterol Sulfate [Proventil Hfa] 2 inhalation IH Q6H PRN 03/04/17 08/10/20 08/09/20 22:00 History Omeprazole 40 mg PO DAILY 03/04/17 08/10/20 08/10/20 10:43 History traMADoL [Ultram 50 MG tab] 50 mg PO Q6HR PRN 03/04/17 08/10/20 08/09/20 22:00 History Aspirin [Aspirin BABY CHEW TAB] 81 mg PO QDAY #30 tab.chew 03/07/17 08/10/20 08/10/20 10:42 Rx Atorvastatin [Lipitor] 80 mg PO QHS #30 tablet 03/07/17 08/10/20 08/09/20 22:00 Rx Losartan [Cozaar] 25 mg PO QDAY #30 tablet 03/07/17 08/10/20 08/10/20 10:41 Rx Nitroglycerin [Nitrostat] 0.4 mg SL Q5M PRN #30 tablet 03/07/17 08/10/20 08/09/20 13:00 Rx Clopidogrel [Plavix] 75 mg PO DAILY 08/10/20 08/10/20 08/09/20 22:00 History Isosorbide Dinitrate [Isordil] 60 mg PO DAILY 08/10/20 08/10/20 08/09/20 History Metformin HCl [Glucophage] 500 mg PO BID 08/10/20 08/10/20 08/10/20 10:41 History Metoprolol Xl [Metoprolol 200 mg PO QDAY 08/10/20 08/10/20 08/10/20 10:42 History SUCCINATE ER TAB] ED Physical Exam - General Limitations: No Limitations ED Course Vital Signs 08/10/20 08/10/20 08/10/20 04:46 05:21 06:01 Temperature 98.4 F 98.2 F Pulse Rate 65 59 L 71 Respiratory 16 16 17 Rate Blood Pressure 154/90 138/76 Blood Pressure 138/76 [Left] O2 Sat by Pulse 97 99 98 Oximetry LIZBETH score - Lizbeth Score Age > 65: (0) No Aspirin use within the Past 7 Days: (1) Yes 3 or more CAD Risk Factors: (1) Yes 2 or more Angina events in past 24 hrs: (1) Yes Known CAD with more than 50% Stenosis: (1) Yes Elevated Cardiac Markers: (0) No ST Deviation Greater than 0.5mm: (0) No LIZBETH Score: 4 ED Medical Decision Making - Lab Data Result diagrams: 08/10/20 05:18 08/10/20 05:18 - EKG Data -: EKG Interpreted by Ma EKG shows normal: sinus rhythm, axis, intervals, QRS complexes Rate: normal - EKG Data Interpretation: other (Anterior T wave version) - Radiology Data Radiology results: report reviewed, image reviewed - Medical Decision Making 60-year-old male, history of CAD, presents to ED with worsening chest pain over the last 2 days. Patient states pain feels similar to when he had to undergo CABG 4 years ago. EKG is unremarkable, troponin is negative x1. Due to patient's history, will admit to hospitalist, Dr. Blacnas, for chest pain work-up. - Differential Diagnosis ACS, pneumonia, atypical chest pain Critical care attestation.: If time is entered above; I have spent that time in minutes in the direct care of this critically ill patient, excluding procedure time. ED Disposition Clinical Impression: Acute chest pain Disposition: -09 OP ADMIT IP TO THIS HOSP Is pt being admited?: Yes Condition: Stable Time of Disposition: 07:30
[2020-08-10] MEDS: ISOSORBIDE DINITRATE 20 MG TAB PO SCH (12:32)
--- NOTE | 2020-08-10 18:00 | History and Physical Report ---
History of Present Illness Date of examination: 08/10/20 Date of admission: 08/10/20 07:43 Chief complaint: Chest pain since last might 8 pm History of present illness: 60-year-old male with history of coronary artery disease status post CABG, hypertension, type 2 diabetes, hyperlipidemia and COPD comes in for intermittent chest pain retrosternal from last night. Pain is described as a tightness. Pain is intermittent in nature about 5 on a scale of 1-10. No diaphoresis no shortness of breath. No fever or chills. No exacerbating or relieving factors. Pain is sharp in nature. Heart Score - HEART Score History: Moderately suspicious EKG: Non-specific Age: 45-65 Risk factors: > 3 risk factors or hx of atherosclerotic disease Troponin: < normal limit HEART Score: 5 - EKG Read Time Time EKG Completed: 04:51 EKG Read Time: 04:55 - Past Medical History Hx Hypertension: Yes Hx Heart Attack/AMI: Yes (CABBAGE) Hx Diabetes: Yes Hx GERD: Yes Hx Asthma: Yes - Surgical History Hx Open Heart Surgery: Yes (Triple Bypass) - Social History Smoking Status: Never Smoker Family history Htn - Medications Home Medications: Home Medications Medication Instructions Recorded Confirmed Last Taken Type Albuterol Sulfate [Proventil Hfa] 2 inhalation IH Q6H PRN 03/04/17 08/10/20 08/09/20 22:00 History Omeprazole 40 mg PO DAILY 03/04/17 08/10/20 08/10/20 10:43 History traMADoL [Ultram 50 MG tab] 50 mg PO Q6HR PRN 03/04/17 08/10/20 08/09/20 22:00 History Aspirin [Aspirin BABY CHEW TAB] 81 mg PO QDAY #30 tab.chew 03/07/17 08/10/20 08/10/20 10:42 Rx Atorvastatin [Lipitor] 80 mg PO QHS #30 tablet 03/07/17 08/10/20 08/09/20 22:00 Rx Losartan [Cozaar] 25 mg PO QDAY #30 tablet 03/07/17 08/10/20 08/10/20 10:41 Rx Nitroglycerin [Nitrostat] 0.4 mg SL Q5M PRN #30 tablet 03/07/17 08/10/20 08/09/20 13:00 Rx Clopidogrel [Plavix] 75 mg PO DAILY 08/10/20 08/10/20 08/09/20 22:00 History Isosorbide Dinitrate [Isordil] 60 mg PO DAILY 08/10/20 08/10/20 08/09/20 History Metformin HCl [Glucophage] 500 mg PO BID 08/10/20 08/10/20 08/10/20 10:41 History Metoprolol Xl [Metoprolol 200 mg PO QDAY 08/10/20 08/10/20 08/10/20 10:42 History SUCCINATE ER TAB] Review of Systems ROS: Constitutional no weight loss or weight gain no fever or chills HEENT no sore throat no post nasal drip no diplopia Neck no neck stiffness no lymph gland enlargement Chest and lungs no shortness of breath cough or wheezing CVS intermittent chest pain GI no nausea no vomiting no diarrhea Genitourinary system no dysuria no flank pain Musculoskeletal system no muscle pains no joint pains TRAFFIC COUNTER no syncope no seizures Skin no rash no itching Psychiatric no depression no homicidal or suicidal tendencies Hematologic no lymphedema or bruising Endocrine no polydipsia no polyuria no cold intolerance no heat intolerance Medications and Allergies Allergies Allergy/AdvReac Type Severity Reaction Status Date / Time atorvastatin [From Lipitor] Allergy Itching Verified 07/17/17 07:42 ibuprofen Allergy Itching Verified 07/17/17 07:42 Home Medications Medication Instructions Recorded Confirmed Last Taken Type Albuterol Sulfate [Proventil Hfa] 2 inhalation IH Q6H PRN 03/04/17 08/10/20 08/09/20 22:00 History Omeprazole 40 mg PO DAILY 03/04/17 08/10/20 08/10/20 10:43 History traMADoL [Ultram 50 MG tab] 50 mg PO Q6HR PRN 03/04/17 08/10/20 08/09/20 22:00 History Aspirin [Aspirin BABY CHEW TAB] 81 mg PO QDAY #30 tab.chew 03/07/17 08/10/20 08/10/20 10:42 Rx Atorvastatin [Lipitor] 80 mg PO QHS #30 tablet 03/07/17 08/10/20 08/09/20 22:00 Rx Losartan [Cozaar] 25 mg PO QDAY #30 tablet 03/07/17 08/10/20 08/10/20 10:41 Rx Nitroglycerin [Nitrostat] 0.4 mg SL Q5M PRN #30 tablet 03/07/17 08/10/20 08/09/20 13:00 Rx Clopidogrel [Plavix] 75 mg PO DAILY 08/10/20 08/10/20 08/09/20 22:00 History Isosorbide Dinitrate [Isordil] 60 mg PO DAILY 08/10/20 08/10/20 08/09/20 History Metformin HCl [Glucophage] 500 mg PO BID 08/10/20 08/10/20 08/10/20 10:41 History Metoprolol Xl [Metoprolol 200 mg PO QDAY 08/10/20 08/10/20 08/10/20 10:42 History SUCCINATE ER TAB] Active Meds: Active Medications Isosorbide Dinitrate (Isosorbide Dinitrate 20 Mg Tab) 60 mg PO DAILY MARYURI Last Admin: 08/10/20 12:32 Dose: 60 mg Documented by: Exam - Constitutional Vitals: Temp Pulse Resp BP Pulse Ox 97.7 F 67 18 132/78 95 08/10/20 15:52 08/10/20 15:52 08/10/20 15:52 08/10/20 15:52 08/10/20 15:52 General appearance: Present: no acute distress, well-nourished - EENT Eyes: Present: PERRL ENT: hearing intact, clear oral mucosa - Neck Neck: Present: supple, normal ROM - Respiratory Respiratory effort: normal Respiratory: bilateral: CTA - Cardiovascular Heart rate: 78 Rhythm: regular Heart Sounds: Present: S1 & S2. Absent: rub, click - Extremities Extremities: pulses symmetrical, No edema Peripheral Pulses: within normal limits - Abdominal General gastrointestinal: Present: soft, non-tender, non-distended, normal bowel sounds Male genitourinary: Present: normal - Integumentary Integumentary: Present: clear, warm, dry - Musculoskeletal Musculoskeletal: gait normal, strength equal bilaterally - Psychiatric Psychiatric: appropriate mood/affect, intact judgment & insight - Neurologic Neurologic: CNII-XII intact, moves all extremities - Allied Health Allied health notes reviewed: nursing, case management HEART Score - HEART Score EKG: Non-specific Age: 45-65 Risk factors: > 3 risk factors or hx of atherosclerotic disease Troponin: Troponin T < 0.010 ng/mL (0.00-0.029) 08/10/20 07:56 Troponin: < normal limit Results - Labs CBC & Chem 7: 08/10/20 05:18 08/11/20 05:03 Labs: Laboratory Last Values WBC 6.4 K/mm3 (4.5-11.0) 08/10/20 05:18 RBC 4.42 M/mm3 (3.65-5.03) 08/10/20 05:18 Hgb 13.2 gm/dl (11.8-15.2) 08/10/20 05:18 Hct 39.3 % (35.5-45.6) 08/10/20 05:18 MCV 89 fl (84-94) 08/10/20 05:18 MCH 30 pg (28-32) 08/10/20 05:18 MCHC 34 % (32-34) 08/10/20 05:18 RDW 14.5 % (13.2-15.2) 08/10/20 05:18 Plt Count 139 K/mm3 (140-440) L 08/10/20 05:18 Lymph % (Auto) 40.2 % (13.4-35.0) H 08/10/20 05:18 [place] % (Auto) 9.0 % (0.0-7.3) H 08/10/20 05:18 Eos % (Auto) 3.0 % (0.0-4.3) 08/10/20 05:18 Baso % (Auto) 1.0 % (0.0-1.8) 08/10/20 05:18 Lymph # (Auto) 2.6 K/mm3 (1.2-5.4) 08/10/20 05:18 [place] # (Auto) 0.6 K/mm3 (0.0-0.8) 08/10/20 05:18 Eos # (Auto) 0.2 K/mm3 (0.0-0.4) 08/10/20 05:18 Baso # (Auto) 0.1 K/mm3 (0.0-0.1) 08/10/20 05:18 Seg Neutrophils % 46.8 % (40.0-70.0) 08/10/20 05:18 Seg Neutrophils # 3.0 K/mm3 (1.8-7.7) 08/10/20 05:18 Sodium 137 mmol/L (137-145) 08/10/20 05:18 Potassium 3.4 mmol/L (3.6-5.0) L 08/10/20 05:18 Chloride 99.9 mmol/L (98-107) 08/10/20 05:18 Carbon Dioxide 27 mmol/L (22-30) 08/10/20 05:18 Anion Gap 14 mmol/L 08/10/20 05:18 BUN 15 mg/dL (9-20) 08/10/20 05:18 Creatinine 0.9 mg/dL (0.8-1.3) 08/10/20 05:18 Estimated GFR > 60 ml/min 08/10/20 05:18 BUN/Creatinine Ratio 17 % 08/10/20 05:18 Glucose 145 mg/dL (75-100) H 08/10/20 05:18 POC Glucose 129 mg/dL (70-105) H 08/10/20 15:50 Calcium 8.6 mg/dL (8.4-10.2) 08/10/20 05:18 Total Bilirubin 0.40 mg/dL (0.1-1.2) 08/10/20 05:18 AST 51 units/L (5-40) H 08/10/20 05:18 ALT 62 units/L (7-56) H 08/10/20 05:18 Alkaline Phosphatase 52 units/L (35-129) 08/10/20 05:18 Troponin T < 0.010 ng/mL (0.00-0.029) 08/10/20 07:56 Total Protein 6.4 g/dL (6.3-8.2) 08/10/20 05:18 Albumin 3.8 g/dL (3.9-5) L 08/10/20 05:18 Albumin/Globulin Ratio 1.5 % 08/10/20 05:18 BMP 08/11/20 05:03 Sodium 140 Potassium 3.8 Chloride 103.9 Carbon Dioxide 25 BUN 12 Creatinine 0.8 Glucose 121 H Calcium 8.3 L Cardiac Enzymes 08/11/20 Range/Units 05:03 Troponin T < 0.010 (0.00-0.029) ng/mL Liver Function 08/11/20 Range/Units 05:03 Total Bilirubin 0.30 (0.1-1.2) mg/dL AST 27 (5-40) units/L ALT 44 (7-56) units/L Alkaline Phosphatase 46 (35-129) units/L Albumin 3.4 L (3.9-5) g/dL - Imaging and Cardiology EKG: report reviewed (Sinus rhythm no acute ST-T wave changes) Cline/IV: Voiding Method Toilet Assessment and Plan Advance Directives: Yes (Full code) VTE prophylaxis?: Chemical Plan of care discussed with patient/family: Yes - Patient Problems (1) ACS (acute coronary syndrome) Current Visit: Yes Status: Acute Plan to address problem: Patient started on ACS protocol Serial troponins Lexiscan in the morning (2) History of coronary artery bypass graft x 3 Current Visit: No Status: Acute Plan to address problem: Continue isosorbide mononitrate (3) Hyperlipidemia Current Visit: No Status: Chronic Qualifiers: Hyperlipidemia type: mixed hyperlipidemia Qualified Code(s): E78.2 - Mixed hyperlipidemia Plan to address problem: Continue statins (4) CAD (coronary artery disease) Current Visit: No Status: Chronic Qualifiers: Coronary Disease-Associated Artery/Lesion type: [place] artery Plan to address problem: Continue Plavix and aspirin (5) Hypertension Current Visit: No Status: Chronic Qualifiers: Hypertension type: essential hypertension Qualified Code(s): I10 - Essential (primary) hypertension (6) T2DM (type 2 diabetes mellitus) Current Visit: Yes Status: Chronic Qualifiers: Diabetes mellitus 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
[2020-08-10] MEDS ORDERED: ALBUTEROL 8.5 GM MDI INHALATION IH PRN (18:52)
[2020-08-10] MEDS ORDERED: NITROGLYCERIN 0.4 MG TAB SUBL SL PRN (18:52)
[2020-08-10] MEDS ORDERED: traMADol 50 MG TAB PO PRN ×2 (18:52→19:10)
[2020-08-10] MEDS ORDERED: NON-FORMULARY EACH (Omeprazole [Omeprazole] 40 MG Capsule.Dr) PO SCH (19:00)
[2020-08-10] MEDS ORDERED: ALBUTEROL 2.5 MG/3 ML NEBU IH PRN (19:08)
[2020-08-10] MEDS: CLOPIDOGREL 75 MG TAB PO SCH (20:41)
[2020-08-10] MEDS: METOPROLOL SUCCINATE XL 100 MG TAB PO SCH (20:46)
[2020-08-10] MEDS: ASPIRIN 81 MG TAB CHEW PO SCH (20:46)
[2020-08-10] MEDS ORDERED: NON-FORMULARY EACH (Atorvastatin [Lipitor] 80 MG Tablet) PO SCH (22:00)
[2020-08-10] MEDS ORDERED: NON-FORMULARY EACH (Metformin Hcl [Glucophage] 1,000 MG Tablet) PO SCH (22:00)
[2020-08-10] MEDS: INSULIN LISPRO 100 UNIT/ML SUB-Q SCH (22:07)
[2020-08-11] MEDS ORDERED: oxyCODONE /ACETAMINOPHEN 5-325MG TAB PO PRN (01:39)
[2020-08-11] MEDS ORDERED: ACETAMINOPHEN 325 MG TAB PO PRN (01:39)
[2020-08-11] MEDS ORDERED: MORPHINE 2 MG/1 ML INJ IV PRN (01:39)
[2020-08-11] MEDS ORDERED: ONDANSETRON 4 MG/2 ML INJ IV PRN (01:39)
[2020-08-11 04:04] VITALS: BP 134/82
[2020-08-11 06:29] LABS: Alanine Aminotransferase 44 units/L (7-56); Albumin 3.4 g/dL (3.9-5); BUN/Creatinine Ratio 15; Blood Urea Nitrogen 12 mg/dL (9-20); Calcium 8.3 mg/dL (8.4-10.2); Hemolysis Index 5
[2020-08-11] MEDS: INSULIN LISPRO 100 UNIT/ML SUB-Q SCH ×3 (07:30→17:14)
[2020-08-11] MEDS ORDERED: REGADENOSON 0.4 MG/5 ML INJ IV ONE (08:03)
[2020-08-11] MEDS ORDERED: PANTOPRAZOLE 40 MG TAB PO SCH (10:00)
[2020-08-11] MEDS ORDERED: ISOSORBIDE DINITRATE 20 MG TAB PO SCH (10:00)
[2020-08-11] MEDS ORDERED: LOSARTAN 25 MG TAB PO SCH (10:00)
[2020-08-11] MEDS: ASPIRIN 81 MG TAB CHEW PO SCH (10:44)
[2020-08-11] MEDS: METOPROLOL SUCCINATE XL 100 MG TAB PO SCH (10:44)
[2020-08-11] MEDS: metFORMIN 500 MG TAB PO SCH ×2 (10:45→16:59)
[2020-08-11] MEDS: ISOSORBIDE DINITRATE 20 MG TAB PO SCH (10:45)
[2020-08-11] MEDS: CLOPIDOGREL 75 MG TAB PO SCH (10:46)
--- NOTE | 2020-08-11 17:06 | Discharge Summary ---
Providers - Providers Date of Admission: 08/10/20 07:43 Date of discharge: 08/11/20 Attending physician: LUCY MELISSA Primary care physician: PROGRAM [employer] Hospitalization Condition: Stable Pertinent studies: Stress test was negative for ischemia Hospital course: History of present illness: 60-year-old male with history of coronary artery disease status post CABG, hypertension, type 2 diabetes, hyperlipidemia and COPD comes in for intermittent chest pain retrosternal from last night. Pain is described as a tightness. Pain is intermittent in nature about 5 on a scale of 1-10. No diaphoresis no shortness of breath. No fever or chills. No exacerbating or relieving factors. Pain is sharp in nature. Day #2 08/11/2020 Patient had Lexiscan which was negative Patient being discharged home Assessment and Plan Advance Directives: Yes (Full code) VTE prophylaxis?: Chemical Plan of care discussed with patient/family: Yes - Patient Problems (1) ACS (acute coronary syndrome) Current Visit: Yes Status: Acute Plan to address problem: Patient started on ACS protocol Lexiscan was negative (2) History of coronary artery bypass graft x 3 Current Visit: No Status: Acute Plan to address problem: Continue isosorbide mononitrate and aspirin (3) Hyperlipidemia Current Visit: No Status: Chronic Qualifiers: Hyperlipidemia type: mixed hyperlipidemia Qualified Code(s): E78.2 - Mixed hyperlipidemia Plan to address problem: Continue statins (4) CAD (coronary artery disease) Current Visit: No Status: Chronic Qualifiers: Coronary Disease-Associated Artery/Lesion type: [place] artery Plan to address problem: Continue Plavix and aspirin (5) Hypertension Current Visit: No Status: Chronic Qualifiers: Hypertension type: essential hypertension Qualified Code(s): I10 - Essential (primary) hypertension (6) T2DM (type 2 diabetes mellitus) Current Visit: Yes Status: Chronic Qualifiers: Diabetes mellitus rat exterminator insulin use: without senior living use Plan to address problem: Check hemoglobin A1c Continue coverage (7) COPD (chronic obstructive pulmonary disease) Current Visit: Yes Status: Chronic Qualifiers: COPD type: unspecified COPD Qualified Code(s): J44.9 - Chronic obstructive pulmonary disease, unspecified Plan to address problem: On DuoNebs as needed (8) DVT prophylaxis Current Visit: Yes Status: Acute Plan to address problem: On heparin and GI prophylaxis Disposition: TO HOME OR SELFCARE Final Discharge Diagnosis (Prints w/discharge instructions): Acute coronary syndrome. Coronary artery disease. Hypertension. COPD. Hyperlipidemia Time spent for discharge: 35 minutes - Discharge Diagnoses (1) ACS (acute coronary syndrome) Status: Acute (2) History of coronary artery bypass graft x 3 Status: Acute (3) Hyperlipidemia Status: Chronic Qualifiers: Hyperlipidemia type: mixed hyperlipidemia Qualified Code(s): E78.2 - Mixed hyperlipidemia (4) CAD (coronary artery disease) Status: Chronic Qualifiers: Coronary Disease-Associated Artery/Lesion type: [place] artery (5) Hypertension Status: Chronic Qualifiers: Hypertension type: essential hypertension Qualified Code(s): I10 - Essential (primary) hypertension (6) T2DM (type 2 diabetes mellitus) Status: Chronic Qualifiers: Diabetes mellitus senior living insulin use: without senior living use (7) COPD (chronic obstructive pulmonary disease) Status: Chronic Qualifiers: COPD type: unspecified COPD Qualified Code(s): J44.9 - Chronic obstructive pulmonary disease, unspecified (8) DVT prophylaxis Status: Acute Core Measure Documentation - Palliative Care Palliative Care/ Comfort Measures: Not Applicable - Core Measures Any of the following diagnoses?: none Exam - Constitutional Vitals: Temp Pulse Resp BP Pulse Ox 97.7 F 57 L 16 134/82 99 08/11/20 03:21 08/11/20 11:00 08/11/20 03:21 08/11/20 03:21 08/11/20 03:21 General appearance: Present: no acute distress, well-nourished - EENT Eyes: Present: PERRL ENT: hearing intact, clear oral mucosa - Neck Neck: Present: supple, normal ROM - Respiratory Respiratory effort: normal Respiratory: bilateral: CTA - Cardiovascular Heart rate: 78 Rhythm: regular Heart Sounds: Present: S1 & S2. Absent: rub, click - Extremities Extremities: no ischemia, pulses intact, pulses symmetrical, No edema Peripheral Pulses: within normal limits - Abdominal General gastrointestinal: Present: soft, non-tender, non-distended, normal bowel sounds Male genitourinary: Present: normal - Integumentary Integumentary: Present: clear, warm, dry - Musculoskeletal Musculoskeletal: gait normal, strength equal bilaterally - Psychiatric Psychiatric: appropriate mood/affect, intact judgment & insight - Neurologic Neurologic: CNII-XII intact, moves all extremities - Allied Health Allied health notes reviewed: nursing, case management Plan Activity: no restrictions Diet: low salt Follow up with: PRIMARY CAREMD [Primary Care Provider] - 3-5 Days OUMOU FARFAN MD [Staff Physician] - 7 Days
--- NOTE | 2020-08-11 23:50 | Treadmill Report ---
DATE OF SERVICE: 08/11/2020 NUCLEAR PERFUSION SCAN PROTOCOL: The patient was assessed in the postoperative state, given 10 mCi of technetium at rest. The patient had rest imaging. The patient will have Lexiscan stress test per standard protocol. At peak stress, the patient was given 26 mCi technetium 99m. Shortly thereafter, the patient underwent stress imaging. Raw imaging was monitored for a diagnosis of motion artifact. SPECT images were examined carefully in the horizontal long axis, vertical long axis, short axis views. This is a technically difficult study due to GI artifact. There is normal homogenous uptake of radioisotope in all port segments. No evidence of significant fixed or reversible perfusion defect suggestive of prior infarct or current ischemia. Gated wall motion reveals normal systolic thickening, calculated ejection fraction of 57%. CONCLUSIONS: Technically difficult study due to GI artifact, but grossly probably normal without evidence of significant degree of ischemia or prior infarction. Gated wall motion reveals normal systolic performance without evidence of transient ischemic dilatation or stress induced segmental wall motion abnormalities. TID: [id number] RECEIPT: [id number] [facility]/HELEN
--- NOTE | 2020-08-12 11:44 | Electrocardiograph Report ---
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
--- NOTE | 2020-08-12 12:00 | Treadmill Report ---
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
== END 2020-08-11 18:15 | disposition home or self-care (01) ==
LOC: ED 04:38 → 4A 07:43
PROVIDERS: ADMIT Internal Medicine; ATTEND Internal Medicine
DX: I24.9 Acute ischemic heart disease, unspecified (principal); I25.10 Atherosclerotic heart disease of native coronary artery without angina pectoris; E78.5 Hyperlipidemia, unspecified; E11.9 Type 2 diabetes mellitus without complications; I10 Essential (primary) hypertension; J44.9 Chronic obstructive pulmonary disease, unspecified; K21.9 Gastro-esophageal reflux disease without esophagitis; Z95.1 Presence of aortocoronary bypass graft; Z79.82 Long term (current) use of aspirin; Z79.84 Long term (current) use of oral hypoglycemic drugs
CPT/HCPCS: 36415; 71045; 78452; 80053; 82962; 83036; 84484; 85025; 93005; 93017; 99285; A9270; A9502; G0378; J2785

== ENCOUNTER 2021-08-15 14:54 | Emergency (ER) | payer MEDICAID ==
[2021-08-15 15:09] VITALS: BP 138/40
--- NOTE | 2021-08-16 12:22 | Electrocardiograph Report ---
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 Electronically Signed On 08-16-2021 12:22:16 EDT by Roscoe Ochoa
== END 2021-08-16 08:04 | disposition left against medical advice (07) ==
LOC: ED 14:54
DX: R07.9 Chest pain, unspecified (principal); I10 Essential (primary) hypertension; Z53.21 Procedure and treatment not carried out due to patient leaving prior to being seen by health care provider
CPT/HCPCS: 93005

== ENCOUNTER 2021-11-11 15:00 | Emergency (ER) | payer MEDICAID ==
--- NOTE | 2021-11-11 23:10 | Emergency Department Report ---
ED Allergic Reaction HPI - General Chief complaint: Skin Rash Stated complaint: ALLERGIC REACTION TO OXYCODONE Time Seen by Provider: 11/11/21 20:41 Source: patient Mode of arrival: Ambulatory Limitations: No Limitations - History of Present Illness Initial Comments: 61-year-old male was emerged from complaining of having allergic reaction after taking some oxycodone about 4 days ago. He had surgical procedure was prescribed oxycodone for help his pain which he took for 2 days resulting in extreme pruritus over his entire body so is discontinued the medication for the last 2 days and reports continued itching. No wheezing, no chest pain, shortness of breath, no fever, chills, sweats. No odynophagia or or dysphagia. MD Complaint: allergic reaction -: Gradual Exposure: medication (Oxycodone) Symptoms: itching Severity: mild Treatment Prior to Arrival: [place] Previous Allergy History: none - Related Data Home Medications Medication Instructions Recorded Confirmed Last Taken Albuterol Sulfate [Proventil Hfa] 2 inhalation IH Q6H PRN 03/04/17 08/10/20 08/09/20 22:00 Clopidogrel [Plavix] 75 mg PO DAILY 08/10/20 08/10/20 08/09/20 22:00 Isosorbide Dinitrate [Isordil] 60 mg PO DAILY 08/10/20 08/10/20 08/09/20 Previous Rx's Medication Instructions Recorded Last Taken Type Aspirin [Aspirin BABY CHEW TAB] 81 mg PO QDAY #30 tab.chew 03/07/17 08/10/20 10:42 Rx Atorvastatin [Lipitor] 80 mg PO QHS #30 tablet 03/07/17 08/09/20 22:00 Rx ALBUTEROL NEB's [Proventil 0.083% 2.5 mg IH Q4HRT PRN nebu 08/11/20 Unknown Rx NEBS] Clopidogrel [Plavix] 75 mg PO DAILY tablet 08/11/20 Unknown Rx Isosorbide Dinitrate [Isordil] 60 mg PO DAILY tablet 08/11/20 Unknown Rx Losartan [Cozaar] 25 mg PO QDAY #30 tablet 08/11/20 Unknown Rx Metoprolol Xl [Metoprolol 200 mg PO QDAY tablet 08/11/20 Unknown Rx SUCCINATE ER TAB] Nitroglycerin [Nitrostat] 0.4 mg SL Q5M PRN tablet 08/11/20 Unknown Rx Pantoprazole [Protonix TAB] 40 mg PO DAILY tablet 08/11/20 Unknown Rx metFORMIN [Glucophage] 500 mg PO BIDDIAB tablet 08/11/20 Unknown Rx traMADoL [Ultram 50 MG tab] 50 mg PO Q6H PRN tablet 08/11/20 Unknown Rx hydrOXYzine HCL [Atarax] 25 mg PO Q6HR PRN #20 tablet 11/11/21 Unknown Rx predniSONE [Deltasone] 50 mg PO QDAY #5 tab 11/11/21 Unknown Rx Allergies Allergy/AdvReac Type Severity Reaction Status Date / Time atorvastatin [From Lipitor] Allergy Itching Verified 11/11/21 17:07 ibuprofen Allergy Itching Verified 11/11/21 17:07 ED Review of Systems ROS: Stated complaint: ALLERGIC REACTION TO OXYCODONE Other details as noted in HPI Comment: All other systems reviewed and negative ED Past Medical Hx - Past Medical History Hx Hypertension: Yes Hx Heart Attack/AMI: Yes (CABBAGE) Hx Diabetes: Yes Hx GERD: Yes Hx Asthma: Yes - Surgical History Hx Open Heart Surgery: Yes (Triple Bypass) - Social History Smoking Status: Never Smoker - Medications Home Medications: Home Medications Medication Instructions Recorded Confirmed Last Taken Type Albuterol Sulfate [Proventil Hfa] 2 inhalation IH Q6H PRN 03/04/17 08/10/20 08/09/20 22:00 History Aspirin [Aspirin BABY CHEW TAB] 81 mg PO QDAY #30 tab.chew 03/07/17 08/10/20 08/10/20 10:42 Rx Atorvastatin [Lipitor] 80 mg PO QHS #30 tablet 03/07/17 08/10/20 08/09/20 22:00 Rx Clopidogrel [Plavix] 75 mg PO DAILY 08/10/20 08/10/20 08/09/20 22:00 History Isosorbide Dinitrate [Isordil] 60 mg PO DAILY 08/10/20 08/10/20 08/09/20 History ALBUTEROL NEB's [Proventil 0.083% 2.5 mg IH Q4HRT PRN nebu 08/11/20 Unknown Rx NEBS] Clopidogrel [Plavix] 75 mg PO DAILY tablet 08/11/20 Unknown Rx Isosorbide Dinitrate [Isordil] 60 mg PO DAILY tablet 08/11/20 Unknown Rx Losartan [Cozaar] 25 mg PO QDAY #30 tablet 08/11/20 Unknown Rx Metoprolol Xl [Metoprolol 200 mg PO QDAY tablet 08/11/20 Unknown Rx SUCCINATE ER TAB] Nitroglycerin [Nitrostat] 0.4 mg SL Q5M PRN tablet 08/11/20 Unknown Rx Pantoprazole [Protonix TAB] 40 mg PO DAILY tablet 08/11/20 Unknown Rx metFORMIN [Glucophage] 500 mg PO BIDDIAB tablet 08/11/20 Unknown Rx traMADoL [Ultram 50 MG tab] 50 mg PO Q6H PRN tablet 08/11/20 Unknown Rx hydrOXYzine HCL [Atarax] 25 mg PO Q6HR PRN #20 tablet 11/11/21 Unknown Rx predniSONE [Deltasone] 50 mg PO QDAY #5 tab 11/11/21 Unknown Rx ED Physical Exam - General Limitations: No Limitations General appearance: alert, in no apparent distress - Head Head exam: Present: atraumatic, normocephalic - Eye Eye exam: Present: normal appearance, PERRL, EOMI Pupils: Present: normal accommodation - ENT ENT exam: Present: normal exam, normal orophraynx, mucous membranes moist, other (Airway patent tongue uvula midline) - Neck Neck exam: Present: normal inspection, full ROM. Absent: tenderness, lymphadenopathy - Respiratory Respiratory exam: Present: normal lung sounds bilaterally. Absent: respiratory distress, chest wall tenderness, accessory muscle use - Cardiovascular Cardiovascular Exam: Present: regular rate, normal rhythm. Absent: bradycardia, tachycardia, systolic murmur, diastolic murmur, rubs, gallop - GI/Abdominal GI/Abdominal exam: Present: soft, normal bowel sounds. Absent: tenderness, guarding, hyperactive bowel sounds, hypoactive bowel sounds, mass, pulsatile mass - Rectal Rectal exam: Present: deferred - Extremities Exam Extremities exam: Present: normal inspection, normal capillary refill - Back Exam Back exam: Present: normal inspection, full ROM. Absent: CVA tenderness (R), CVA tenderness (L) - Neurological Exam Neurological exam: Present: alert, oriented X3, CN II-XII intact - Psychiatric Psychiatric exam: Present: normal affect, normal mood. Absent: depressed, agitated, anxious, flat affect, suicidal ideation - Skin Skin exam: Present: warm, dry, intact, normal color. Absent: rash, erythema, petechiae, pallor, abrasion ED Course Vital Signs 11/11/21 17:01 Temperature 98.2 F Pulse Rate 60 Respiratory 18 Rate Blood Pressure 146/80 [Right] O2 Sat by Pulse 100 Oximetry ED Medical Decision Making - Medical Decision Making This patient presents with symptoms consistent with acute hypersensitivity reaction, likely acute allergic reaction. Presentation not consistent with acute anaphylaxis (lack of pulmonary, dermatologic, cardiovascular or GI symptoms, lack of hypotension or exposure to known allergen), angioedema, serum sickness(no recent drug exposure, lack of fevers, arthralgias), ingestion of preformed toxin. No evidence of airway compromise or shock at this time. Plan to treat for allergic reaction with H2/H1 blockers, steroids. No indication for epinephrine at this time. Plan Critical care attestation.: If time is entered above; I have spent that time in minutes in the direct care of this critically ill patient, excluding procedure time. ED Disposition Clinical Impression: Allergic reaction, Medication reaction Disposition: HOME / SELF CARE / HOMELESS Is pt being admited?: No Does the pt Need Aspirin: No Condition: Stable Instructions: Allergies, Adult, [id number], Drug Allergy Prescriptions: hydrOXYzine HCL [Atarax] 25 mg PO Q6HR PRN #20 tablet PRN Reason: Itching predniSONE [Deltasone] 50 mg PO QDAY #5 tab Referrals: ABE GAINES MD [Staff Physician] - 3-5 Days
[2021-11-12 01:11] VITALS: BP 136/82
== END 2021-11-12 01:11 | disposition home or self-care (01) ==
LOC: ED 15:00
DX: T78.49XA Other allergy, initial encounter (principal); T40.2X5A Adverse effect of other opioids, initial encounter; I10 Essential (primary) hypertension; I21.9 Acute myocardial infarction, unspecified; E11.9 Type 2 diabetes mellitus without complications; K21.9 Gastro-esophageal reflux disease without esophagitis; J45.909 Unspecified asthma, uncomplicated; Z98.890 Other specified postprocedural states; Z91.09 Other allergy status, other than to drugs and biological substances; Z79.899 Other long term (current) drug therapy; X58.XXXA Exposure to other specified factors, initial encounter; Y92.89 Other specified places as the place of occurrence of the external cause
CPT/HCPCS: 99282